=== PATIENT | male | born 1955 | race Caucasian/White ===

== ENCOUNTER 2022-07-06 12:20 | Outpatient (CLI) | payer MEDICARE, BC, SELFPAY | END 2022-07-06 12:21 | disposition home or self-care (01) | PROVIDERS: PCP Family Medicine; Visit Provider Physician Assistant Surgical | DX: M25.422 Effusion, left elbow (principal) | CPT/HCPCS: 87186; 87205; 89060 ==

== ENCOUNTER 2022-08-11 07:14 | Emergency (ER) | payer MEDICARE, BC, SELFPAY ==
[2022-08-11 07:19] VITALS: BP 158/72; PULSE 56; RESP 18; TEMP 36.2; O2SAT 98; BMI 35.3
--- NOTE | 2022-08-11 07:32 | CRLHL7_ITS ---
For Patients: As a result of the Cures Act, medical imaging exams and procedure reports are released immediately into your electronic medical record. You may view this report before your referring provider. If you have questions, please contact your health care provider. INDICATION: Pain. TECHNIQUE: Two views left glenohumeral joint. IMPRESSION: No fracture or malalignment. Maintained acromiohumeral distance. Mild osteoarthritis AC joint. Dictated by Claude Flood MD @ 08/11/2022 8:22:20 AM (Electronically Signed)
--- NOTE | 2022-08-11 08:07 | ED_ITS ---
HPI - General Adult General Time Seen by Provider: 08:07 Date Seen: 08/11/22 Chief complaint: Shoulder Injury/Pain Stated complaint: LT shoulder pain Time Seen by Provider: 08/11/22 08:05 Source: patient and RN notes reviewed Mode of arrival: ambulatory Limitations: no limitations History of Present Illness HPI narrative: Patient is a 67-year-old gentleman coming in with left shoulder pain that has been progressive over the last week. Seems to worsen when he tries to lay down at night. Last night he was up every hours every couple hours, trying Aleve, trying [id number] pain medicines. He is feeling the pain go up into his left neck some. Feels it down into the upper arm. No numbness or tingling. He has had a history of gout in this left elbow but it feels nothing like that. He is not having any pain with mobilizing the joint. No fevers chills, no trauma, no aggravating activity that he is aware of. He has been to the chiropractor in the chiropractors done adjustments and nothing is helping. Symptoms are getting worse. He did have a left shoulder x-ray ordered in triage been okayed by the night time ED doctor. My preliminary review I see no evidence of any definitive pathology, awaiting Radiology over-read on this. Related Data Home Medications Medication Instructions Recorded Confirmed atenolol 25 mg tablet 25 mg PO QDAY 07/06/22 07/31/22 glimepiride 2 mg tablet 2 mg PO QDAY 07/06/22 07/31/22 losartan 25 mg tablet 25 mg PO QDAY 07/06/22 07/31/22 metformin 500 mg tablet 500 mg PO BID 07/06/22 07/31/22 pioglitazone 15 mg tablet (Actos) 15 mg PO QDAY 07/06/22 07/31/22 allopurinol 100 mg tablet 200 mg PO QDAY 07/31/22 07/31/22 allopurinol 300 mg tablet 300 mg PO QDAY 07/31/22 07/31/22 Previous Rx's Medication Instructions Recorded cyclobenzaprine 10 mg tablet 10 mg PO TID PRN muscle spasm #30 08/11/22 tabs gabapentin 300 mg capsule 300 mg PO QHS PRN #14 caps 08/11/22 prednisone 20 mg tablet 20 mg PO BID #10 tabs 08/11/22 Allergies Allergy/AdvReac Type Severity Reaction Status Date / Time No Known Drug Allergies Allergy Verified 07/31/22 09:09 [facility] Medical History (Updated 08/11/22 @ 10:14 by Sharon Crane MD) Hypertension Type 2 diabetes mellitus Surgical History (Updated 07/06/22 @ 11:17 by Eliza Zhang LPN) History of prostate surgery Social History Smoking Status: Former smoker How often do you have a drink containing alcohol: never AUDIT-C Alcohol total score: 0 Non-prescribed substance use: denies use Exam Const: Vital Signs, click to edit/add: Vital Signs - 24 hr 08/11/22 07:19 Temperature 97.2 F L Pulse Rate [Pulse Oximeter] 56 L Respiratory Rate 18 Blood Pressure [Ri ght Upper Arm] 158/72 H Pulse Oximetry 98 Oxygen Delivery Me thod Room Air Documenting provider has reviewed patient's vital signs: yes Common normals: no apparent distress, oriented x3, no limitations, healthy appearing, alert and well nourished General appearance: cooperative and comfortable Other: Patient has no midline tenderness of his neck, there is some left paraspinous tenderness but no palpable abnormality other than his pain. He has full range of motion of his neck without any difficulty. He has full range of motion of his left shoulder, no evidence of any impingement, no pain with supraspinatus testing. He does get a little anterior shoulder pain when you have him reach behind his back. Otherwise the strength throughout his left arm is normal. He has a normal arc of abduction, no pain over 90?. Forward flexion is normal. After I had done some provocative maneuvers of his neck and shoulder, he stated the left neck was hurting a little bit more and was feeling a little dull ache in the left deltoid area. Normal sensation, normal coloration, normal vascularity of this extremity. HENMT: Common normals: normocephalic and head/scalp atraumatic Head and scalp: normocephalic and atraumatic Cardio: Common normals: regular rate, regular rhythm, S1 normal heart sound, S2 normal heart sound, no gallops, no clicks and no murmurs Rate: regular rate Rhythm: regular rhythm Heart sounds: S1 normal and S2 normal Neuro: Common normals: oriented x3 Sensorium/orientation: alert Course Course Hospital Course: Reviewed with patient and his that I suspect a neck issue here, suspect a cervical radiculopathy. We are going to have him go back to x-ray and get cervical spine imaging, plain films. Reviewed with them that this will just give us an idea of the underlying architecture of his spine. Ultimately if he has having ongoing issues, developed motor problems, would need an MRI. He does understand that. Reevaluation(s) Reevaluation #1: Discussed with patient possibly doing IM steroids to initiate management. We are currently waiting for him to get cervical spine imaging. His would like to get the injection. I will order Solu-Medrol 125 mg IM while we await his cervical spine x-rays. He is wondering what he is going to do about sleeping, reviewed with him that the steroids really are the mainstay of treatment in this. We certainly will discussed pain management prior to discharge. I can easily send him with few pain pills that he can use at night to help him and sleep until the steroids are hopefully improving his situation. Time: 08:57 Reevaluation #2: Reviewed cervical spine x-rays with them. He does have some spondylosis, reviewed there were degenerative changes which would support a diagnosis of cervical radiculopathy. Right now he is feeling best sitting up. We did discuss that that is likely giving more space within the spine. In discussion of pain management for sleep, had stated she had gotten gabapentin before. Did discuss narcotics verses gabapentin. Decision was made to initiate gabapentin at bedtime as needed. We did discuss that there sedative properties with this. I will send in a prescription of gabapentin, reviewed with him I can give them more tablets of this than the narcotic. Time: 10:10 Vital Signs Vital signs: Initial Vital Signs Temperature 97.2 F L 08/11/22 07:19 Temperature Source Temporal Artery Scan 08/11/22 07:19 Pulse Rate 56 L 08/11/22 07:19 Respiratory Rate 18 08/11/22 07:19 Blood Pressure 158/72 H 08/11/22 07:19 Blood Pressure Mean 100 08/11/22 07:19 Blood Pressure Position Sitting 08/11/22 07:19 Pulse Oximetry 98 08/11/22 07:19 Oxygen Delivery Method 12/03/22 07:19 Vital Signs Temperature 97.2 F L 08/11/22 07:19 Pulse Rate 56 L 08/11/22 07:19 Respiratory Rate 18 08/11/22 07:19 Blood Pressure 158/72 H 08/11/22 07:19 Pulse Oximetry 98 08/11/22 07:19 Oxygen Delivery Method 08/11/22 07:19 Temperature 97.2 F L 08/11/22 07:19 Pulse Rate 56 L 08/11/22 07:19 Respiratory Rate 18 08/11/22 07:19 Blood Pressure 158/72 H 08/11/22 07:19 Pulse Oximetry 98 08/11/22 07:19 Oxygen Delivery Method 08/11/22 07:19 Medical Decision Making Imaging Data X-ray left shoulder: Attestation: I have reviewed the pertinent imaging results. My impression: I did not appreciate any evidence of any fracture or significant abnormality on my preliminary review of this shoulder, await Radiology over-read. Radiologist's impression: Patient: [facility] Facility:?[facility] Patient ID:?[id number] Site Patient ID:?[id number]. Site :?[id number] Study:?XRay Shoulder Left -08/11/2022 8:05:09 AM Ordering Physician:SHERLY ZAPATA Final Report: INDICATION: Pain. TECHNIQUE: Two views left glenohumeral joint. IMPRESSION: No fracture or malalignment. Maintained acromiohumeral distance. Mild osteoarthritis AC joint. Dictated by Claude Flood MD @ 08/11/2022 8:22:20 AM (Electronic Signature) X-ray cervical spine: Attestation: I have reviewed the pertinent imaging results. My impression: Appreciate some degenerative changes but no acute pathology, await Radiology over-read. Radiologist's impression: Patient: [facility] Facility:?[facility] Patient ID:?[id number] Site Patient ID:?[id number]. Site :?1955 Study:?XRay Spine Cervical 3 VIEWS-08/11/2022 9:50:07 AM Ordering Physician:Armando Herrera Final Report: INDICATION: Pain. TECHNIQUE: Three views of the cervical spine. COMPARISON: None available. FINDINGS: Cervical spinal straightening without static spondylolisthesis. The visualized cervical vertebral body heights are maintained. Moderate multilevel cervical spondylosis predominating at C6-C7. Nonthickened prevertebral soft tissues. IMPRESSION: Multilevel cervical spondylosis. Dictated by Diaz Holder MD @ 08/11/2022 9:54:16 AM Dictated by: Diaz Holder MD @ 08/11/2022 09:54:19 (Electronic Signature) Critical Care Time Critical Care Time Critical Care Time: No Discharge Plan Discharge Clinical Impression: Left cervical radiculopathy Patient Disposition: Home, Self-Care Condition: Stable Instructions: Cervical Radiculopathy (ED) Additional Instructions: Need to start oral prednisone tonight and take as prescribed. Can use Flexeril as needed for muscle relaxer as prescribed. Tylenol/ibuprofen as needed during day, follow bottle directions for dosing. Referral provided for physical therapy, call for appointment. Need to schedule follow up in clinic for primary provider within the next week. Review handout, if concerns or worsening, need to seek re-evaluation. Activity Level: Activity as Tolerated Prescriptions: New prednisone 20 mg tablet 20 mg PO BID Qty: 10 0RF cyclobenzaprine 10 mg tablet 10 mg PO TID PRN (Reason: muscle spasm) Qty: 30 0RF gabapentin 300 mg capsule 300 mg PO QHS PRNQty: 14 0RF No Action metformin 500 mg tablet 500 mg PO BID losartan 25 mg tablet 25 mg PO QDAY glimepiride 2 mg tablet 2 mg PO QDAY atenolol 25 mg tablet 25 mg PO QDAY pioglitazone [Actos] 15 mg tablet 15 mg PO QDAY allopurinol 100 mg tablet 200 mg PO QDAY allopurinol 300 mg tablet 300 mg PO QDAY Follow Up/Referrals: Pedrito Hale MD [Primary Care Provider] - Stand Alone Forms: [employer]th Info Instructions
--- NOTE | 2022-08-11 08:16 | CRLHL7_ITS ---
For Patients: As a result of the Cures Act, medical imaging exams and procedure reports are released immediately into your electronic medical record. You may view this report before your referring provider. If you have questions, please contact your health care provider. INDICATION: Pain. TECHNIQUE: Three views of the cervical spine. COMPARISON: None available. FINDINGS: Cervical spinal straightening without static spondylolisthesis. The visualized cervical vertebral body heights are maintained. Moderate multilevel cervical spondylosis predominating at C6-C7. Nonthickened prevertebral soft tissues. IMPRESSION: Multilevel cervical spondylosis. Dictated by Diaz Holder MD @ 08/11/2022 9:54:16 AM Dictated by: Diaz Holder MD @ 08/11/2022 09:54:19 (Electronically Signed)
[2022-08-11] MEDS: METHYLPREDNISOLONE SOD SUCC 40 MG/ML 125 MG IM (09:22)
== END 2022-08-11 10:32 | disposition home or self-care (01) ==
PROVIDERS: Emergency Provider Family Medicine; PCP Family Medicine
DX: M54.12 Radiculopathy, cervical region (principal)
CPT/HCPCS: 72040; 73030; 96372; 99284; J2920

== ENCOUNTER 2022-08-20 14:06 | Outpatient (CLI) | payer MEDICARE, BC, SELFPAY ==
--- NOTE | 2022-08-20 14:30 | MR_ITS ---
[address] [address] Phone:?[phone] Fax:?[phone] Referring Physician Information: Selma Best [address] [facility] [address] Phone:?[phone] Fax:?[phone] Patient:?Basilio Jimenez D.O.B:?1955 Sex:?Male Phone:?[phone] [facility] MRN:?[id number] Exam Date:?08/20/2022 ? EXAM: MRI of the LEFT SHOULDER, without contrast CLINICAL HISTORY: Left shoulder pain. Evaluate for rotator cuff tear. COMPARISONS: None available. TECHNICAL: MRI sequences of the left shoulder: Axials: PD, T2 Coronals: PD, STIR, T2 Sagittals: PD, T2 SEDATION: None CONTRAST: None FINDINGS: Bones: No fracture or suspicious bone marrow signal abnormality. Coracoacromial arch: Acromion: No os acromiale. Type I-II acromion. Acromiohumeral space: The bony distance is unremarkable. Coracohumeral space: The bony distance measures 6-7 mm. Acromioclavicular joint: Moderate degenerative changes with moderate inferior osteophytosis/hypertrophy. Coracoclavicular ligament: The coracoclavicular ligament is intact. Rotator cuff muscles/tendons: Supraspinatus: There is a 4 x 4 mm slitlike concealed intrasubstance tear within the supraspinatus tendon insertional footprint that contacts the cortical insertional surface and is superimposed upon undersurface fraying and moderate tendinopathy of the supraspinatus tendon. No atrophy of the supraspinatus muscle. Infraspinatus: Interstitial delamination and moderate tendinopathy of the infraspinatus tendon. No atrophy of the infraspinatus muscle. Teres minor: The teres minor tendon and muscle are intact. Subscapularis: 2.2 x 2.2 cm ill-defined high-grade partial-thickness tear of the superior portion of the subscapularis tendon superimposed upon moderate subscapularis tendinopathy. No atrophy of the subscapularis muscle. Labrum: Fraying/ill-defined tearing of the superior and posterior portions of the labrum. Proximal biceps tendon, long head and short heads: Mild tendinopathy within the intra-articular portion of the long head of the biceps tendon. The short head is intact. Glenohumeral joint: Trace glenohumeral joint effusion. No full-thickness chondral defect or subchondral bone marrow edema/cystic change is seen. No convincing evidence of capsular edema or thickening although evaluation is suboptimal because of lack of joint distention. Bursae: Subacromial/subdeltoid: No convincing subacromial bursal thickening/bursitis. Subcoracoid: No convincing subcoracoid bursal thickening/bursitis. IMPRESSION: 1. 2.2 x 2.2 cm ill-defined high-grade partial-thickness tear of the superior portion of the subscapularis tendon superimposed upon moderate subscapularis tendinopathy. Associated narrowing of the coracohumeral bony distance. 2. 4 x 4 mm slitlike concealed intrasubstance tear within the supraspinatus tendon insertional footprint contacts the cortical insertional surface and is superimposed upon undersurface fraying and moderate tendinopathy of the supraspinatus tendon. 3. Interstitial delamination and moderate tendinopathy of the infraspinatus tendon. 4. No atrophy of the rotator cuff musculature. 5. Mild tendinopathy within the intra-articular portion of the long head of the biceps tendon. 6. Moderate acromioclavicular joint osteoarthritis with moderate inferior osteophytosis/hypertrophy. 7. Fraying/ill-defined tearing of the superior and posterior portions of the labrum. 8. Trace glenohumeral joint effusion. RCB Electronically signed on 08/21/2022 6:24:00 AM by Naun Diehl M.D.
== END 2022-08-20 14:07 | disposition home or self-care (01) ==
LOC: MRI 14:07
PROVIDERS: PCP Family Medicine; Visit Provider Physician Assistant Surgical
DX: M25.511 Pain in right shoulder (principal); S46.912A Strain of unspecified muscle, fascia and tendon at shoulder and upper arm level, left arm, initial encounter; M75.102 Unspecified rotator cuff tear or rupture of left shoulder, not specified as traumatic; M19.012 Primary osteoarthritis, left shoulder; S43.432A Superior glenoid labrum lesion of left shoulder, initial encounter; M25.412 Effusion, left shoulder
CPT/HCPCS: 73221

== ENCOUNTER 2022-10-01 07:30 | Outpatient (RCR) | payer MEDICARE, BC, SELFPAY ==
--- NOTE | 2022-08-23 09:40 | PT.OPEX ---
Please review and sign the attached physical therapy evaluation completed on 08/23/22. Thank you. PT [facility] Outpatient Eval PT [facility] Outpatient Eval Start: 08/23/22 07:26 Freq: Status: Active Protocol: Document 08/23/22 07:26 TLQ (Rec: 08/23/22 08:27 TLQ [id number]) E-signed By Chanelle Khanna DPT Physical Therapy Outpatient Evaluation Insurance Information Recert Due Date 11/21/22 Insurance Name Medicare B,[employer] Medical Diagnosis Bursitis of left shoulder Pain in left shoulder Treating Diagnosis Pain in left shoulder Stiffness in left shoulder Muscle weakness Referring MD Morris Subjective Subjective States pain in left shoulder started a few weeks ago when he was pushing something while working on his car. Started Prednisone about a week and half ago, his shoulder has been feeling better since starting it. Prefers to sleep on his left side, able to do so comfortably since starting new medication. Prior to Prednisone prescription pain would wake him up a few nights a week. Able to use his shoulder close to normal now. Used to have difficulty washing his hair but is able to so now. Still has a little trouble lifting heavier objects with his left arm. Is left handed so prefers to use his left arm. Had MRI taken of left shoulder on 08/20/22, reports he has two small rotator cuff tears, recommended physical therapy. PMHx: Diabetes Pain Comments 09/18* *since starting Prednisone Current Work Status Retired Preferred Name [employer] Precautions Therapy Limitations/Systems Review Not Limited Objective Range of Motion L shoulder AROM: flexion - 99 degrees extension - 46 degrees abduction - 56 degrees internal rotation - C7 external rotation - T8 Strength Shoulder: flexion - L 3, R 5 abduction - L 3+, R 5 internal rotation - L 4+, R 5 external rotation - L 4+, R 5 Elbow: flexion - 5 B extension - 5 B Palpation Non tender with palpation of all rotator cuff muscles and points of insertion on L shoulder Joint mobility: hypomobile B glenohumeral posterior glide Posture Forward shoulders Other/Pertinent Objective Shoulder special tests: Empty can test - negative on L Drop arm test - negative on L Lift-off test - positive on L Functional Test Performed & Score SPADI pain: 32% disability: 24% total score: 35/130 Assessment Assessment/Impression Patient presents with pain and limited mobility in his left shoulder, symptoms began while working on his car a few weeks ago. Patient had MRI taken of his shoulder three days ago, indicated small rotator cuff tear. He is currently taking Prednisone which has helped with his pain levels. Rotator cuff of L subscapularis likely due to positive lift off sign, possible involvement of L supraspinatus due to limited abduction AROM. Demonstrates decreased shoulder flexion and abduction AROM upon assessment today, able to achieve functional range supine supine active-assisted exercises. Muscle weakness also present in L shoulder. Based on the above examination findings, he will benefit from skilled physical therapy to increased L shoulder AROM and increase strength to return to PLOF. Primary Functional Limitations L shoulder flexion, L shoulder abduction, lifting with L arm , lying on L shoulder, muscle weakness Plan of Care Rehabilitation Potential Good Physical Therapy Goals In 3-4 visits: - Increase L shoulder flexion AROM by >10 degrees. - Increase L shoulder abduction AROM to >90 degrees. In 6-8 visits: - Patient will demonstrate L shoulder flexion WFL for improved overhead lifting. - Patient will demonstrate L shoulder abduction WFL for improved shoulder mobility. - L shoulder gross strength will increase to 5/5 to allow patient to work on his car pain-free. - Patient will adhere to HEP to maintain strength and mobility outside of physical therapy. Treatment Plan/Direct Interventions Ice/Cold/Vasopneumatic,Joint Mobilization,Manual Therapy, Neuromuscular Re-ed,Self-Care/ Home Management,Therapeutic Activities,Therapeutic Exercises Frequency/Duration 1x/week for 6-8 visits Patient Will Be Discharged From Therapy Completion of LTG(s),Skills Plateau,Independent w/HEP, Independently Progressing Evaluation Billing Untimed Code Treatment Minutes 25 Complexity Low Certification Information Initial Certification Date 08/23/22 Ending Certification Date 11/21/22 Provider Signature Shows Agreement With POC & Medical Necessity Physician Signature & Date Requested Please Sign/Date Here Physician Comment/Change : Physician NPI Number #
== END 2023-01-02 14:40 | disposition home or self-care (01) ==
PROVIDERS: PCP Family Medicine; Visit Provider Physician Assistant Surgical
DX: M75.52 Bursitis of left shoulder (principal); Z51.89 Encounter for other specified aftercare
CPT/HCPCS: 97110; 97140; 97161

== ENCOUNTER 2023-11-19 10:08 | Outpatient (CLI) | payer MEDICARE, BC, SELFPAY | END 2023-11-19 10:09 | disposition home or self-care (01) | PROVIDERS: PCP Family Medicine; Visit Provider Family Medicine | DX: M54.16 Radiculopathy, lumbar region (principal); M51.36 Other intervertebral disc degeneration, lumbar region | CPT/HCPCS: 62323; J0702; Q9966 ==

== ENCOUNTER 2024-01-30 09:52 | Outpatient (CLI) | payer MEDICARE, BC, SELFPAY ==
--- OUTSIDE RECORDS SUMMARY | 2024-01-30 09:53 | XMS_ITS | Continuity of Care Document ---
Author Organization [facility], [facility] Address [address] [place] [address] Assessment Encounter Date Assessment Date Assessment LastModified by Organization Details LastModified Time 01/29/2024 01/29/2024 68-year-old male with history of nephrolithias is, elevated PSA, and BPH with lower urinary tract symptoms status post TURP [email or web address] Not available 01/27/2024 16:20:13 Plan of Treatment Reminders Order Date Submit Date Provider Last Modified By Organization Details Last Modified Time Details Appointments None record ed. Lab None record ed. Referral None record ed. Procedures None record ed. Surgeries None record ed. Imaging None record ed. Medication Orders None record ed. Patient TargetsNo targets recorded. Patient InstructionsNo instructions recorded. Reason for Referral None Reported. Problems Name Status Onset Date Resolution Date Notes Provider Name and Address Organization Details Recorded Time Prostate specific antigen above reference range Active 11/20/19 13 790.93 : ELEVATED PSA Not Available [facility] 02/25/2020 02:07:20 Problem Notes None recorded. Procedures Surgical History Date Name Laterality Status Provider Name and Address Organization Details Recorded Time 4 COMPLEX VISIT completed Stanley Hernandez MD [address] [place] [address],[address], [phone], [facility] 01/29/2024 09:13:49 4 Bladder Scan completed Michelle hunter, [facility] 01/29/2024 11:53:43 3 Bladder Scan completed Michelle hunter, [facility] 08/28/2023 10:43:52 3 colonoscopy completed Stanley Hernandez MD [address] [place] [address],[address], [address], [facility] 08/28/2023 10:33:21 3 Bladder Scan completed Stanley Hernandez MD [address] [place] [address], [phone], [facility] 01/28/2023 12:37:23 2 Flow Rate / Uroflow completed Pa hunter [facility] 07/16/2022 15:49:34 2 Bladder Scan completed Pa hunter [facility] 07/16/2022 15:48:19 2 CYSTOURETHROSCO PY, WITH IRRIGATION AND EVACUATION OF CLOTS (SURG) completed Stanley Hernandez MD [address] [place] [address],[address], [phone], [facility] 07/16/2022 16:19:28 Imaging Results None recorded. Procedure Notes None recorded. Medical Equipment None Reported. Allergies No known drug allergies Medications Name Sig Start Date Stop Date Status Note LastModified by Organization Details LastModified Time cyclobenzap rine 10 mg tablet TAKE 1 TABLET BY MOUTH THREE TIMES DAILY NEEDED FOR MUSCLE SPASM 01/28 completed Not Available Not Available Not Available pioglitazon e 15 mg tablet TAKE 1 TABLET BY MOUTH ONCE DAILY. active Not Available Not Available No t Available prednisone 10 mg tablet 01/28 completed Not Available Not Available Not Available doxycycline hyclate 100 mg capsule 01/28 completed Not Available Not Available Not Available prednisone 20 mg tablet TAKE 1 TABLET BY MOUTH TWICE DAILY 01/28 completed Not Available Not Available Not Available atenolol 25 mg tablet active Not Available Not Available No t Available chlorthalid one 50 mg tablet TAKE ONE TABLET DAILY active Not Available Not Available No t Available allopurinol 100 mg tablet 08/28 completed Not Available Not Available Not Available ciprofloxac in 500 mg tablet 07/16 completed Not Available Not Available Not Available tramadol 50 mg tablet active Not Available Not Available No t Available potassium citrate ER 10 mEq (1,080 mg) tablet,exte nded release TAKE 1 TABLET BY MOUTH TWICE DAILY WITH FOOD 08/28 completed Not Available Not Available Not Available cephalexin 500 mg capsule TAKE 1 CAPSULE BY MOUTH THREE TIMES DAILY FOR 7 DAYS 02/13 completed Not Available Not Available Not Available metformin 1,000 mg tablet twice daily active Not Available Not Available No t Available glimepiride 4 mg tablet TAKE 2 TABLETS BY MOUTH ONCE DAILY WITH A MEAL. active Not Available Not Available No t Available gabapentin 300 mg capsule TAKE 1 CAPSULE BY MOUTH EVERY DAY AT BEDTIME NEEDED 08/28 completed Not Available Not Available Not Available omeprazole 20 mg capsule,del ayed release 01/28 completed Not Available Not Available Not Available allopurinol 300 mg tablet active Not Available Not Available Not Available losartan 100 mg tablet TAKE ONE TABLET BY MOUTH DAILY. active Not Available Not Available No t Available finasteride 5 mg tablet TAKE 1 TABLET BY MOUTH EVERY DAY 01/28 completed Not Available Not Available Not Available Microlet Lancet USE TO TEST ONCE DAILY active Not Available Not Available No t Available calcium citrate 250 mg tablet TAKE ONE TABLET TWICE DAILY 02/13 completed Not Available Not Available Not Available Gavilyte-C 240 gram-22.72 gram-6.72 gram-5.84 gram oral solution DRINK 2 LITERS THE DAY BEFORE COLONOSCO PY AND 2 LITERS 6 HOURS BEFORE APPOINTME NT 08/28 completed Not Available Not Available Not Available Contour Next Test Strips TEST 2 TIMES DAILY active Not Available Not Available No t Available FreeStyle Nicholas 14 Day Sensor kit CHANGE SENSOR EVERY 14 DAYS active Not Available Not Available No t Available Vitals Date Recorded Body height Body mass index (BMI) Body weight Provider Name and Address Organization Details Last Updated DateTime 01/29/2024 182.88 cm 39.3 kg/m2 738836.79 g Michelle Tierney [facility] 01/29/2024 11:49:16 Social History Question Answer Notes LastModified by Organizat ion Details LastModified Time Tobacco Smoking Status Former Smoker Pa hunter [facility] 07/16/2022 15:40:06 What Is Your Level Of Alcohol Consumption? Occasional Information not available 07/16/2022 How Many Times Per Week Do You Consume Alcohol? Less Than 1 Time Per Week Information not available 02/13/2023 What Is Your Level Of Caffeine Consumption? Occasional Information not available 07/16/2022 Are You Currently Employed? No Information not available 07/16/2022 When Did You Quit Smoking? 16+yearssincel astcigarette Information not available 07/16/2022 Recreational Drug Use No Information not available 07/16/2022 What Was The Date Of Your Most Recent Tobacco Screening? 01/29/2024 [email or web address] Information not available 01/29/2024 What Is Your Relationship Status? Information not available 07/16/2022 Do You Use Any Illicit Or Recreational Drugs? No Information not available 02/13/2023 Has Tobacco Cessation Counseling Been Provided? No Information not available 07/16/2022 How Many Years Have You Smoked Tobacco? 20 Information not available 07/16/2022 Do You Or Have You Ever Used Any Other Forms Of Tobacco Or Nicotine? No Information not available 07/16/2022 Sex: Male Functional Status None recorded. Mental Status None recorded. Family History Nothing Reported. Medical History No medical history recorded. Immunizations Vaccine Type Date Status Provider Name and Address Organization Details Recorded Time Influenza vaccine, quadrivalent, adjuvanted 07/26/2023 completed Stanley Hernandez MD [address] [place] [address],[address], [phone], [facility] 08/28/2023 10:29:24 Pneumococcal conjugate PCV20, polysaccharide [id number] conjugate, adjuvant, PF 07/26/2023 completed Stanley Hernandez MD [address] [place] [address],[address], [phone], [facility] 08/28/2023 10:29:24 COVID-19, mRNA, LNP-S, PF, 50 mcg/0.5 mL 07/26/2023 completed Stanley Hernandez MD [address] [place] [address],[address] [place] [address], [phone], [facility] 08/28/2023 10:29:24 RSV, bivalent, protein subunit RSVpreF, diluent reconstituted, 0.5 mL, PF 08/27/2023 completed Michelle hunter [facility] 01/29/2024 11:49:27 zoster recombinant 03/05/2019 completed Romina hunter [facility] 07/03/2023 12:36:03 zoster recombinant 06/12/2019 completed Romina Sinha null, [facility] 07/03/2023 12:36:03 Influenza vaccine, quadrivalent, adjuvanted 05/10/2022 completed Romina Sinha null, [facility] 07/03/2023 12:36:03 Influenza vaccine, quadrivalent, adjuvanted 07/07/2020 completed Romina Sinha null, [facility] 07/03/2023 12:36:03 Influenza vaccine, quadrivalent, adjuvanted 07/13/2021 completed Romina Sinha null, [facility] 07/03/2023 12:36:03 COVID-19, mRNA, LNP-S, PF, 30 mcg/0.3 mL dose 11/13/2020 [facility] 12:36:03 COVID-19, mRNA, LNP-S, PF, 30 mcg/0.3 mL dose 12/15/2020 [facility] 12:36:04 COVID-19, mRNA, LNP-S, PF, 30 mcg/0.3 mL dose 07/13/2021 [facility] 12:36:04 pneumococcal polysaccharide PPV23 08/31/2021 [facility] 12:36:04 Tdap 05/10/2022 completed Romina Sinha null, [facility] 07/03/2023 12:36:04 Tdap 08/18/2012 completed Romina Sinha null, [facility] 07/03/2023 12:36:04 Novel [id number], all formulations 09/07/2009 completed Romina Sinha null, [facility] 07/03/2023 12:36:04 zoster live 08/27/2014 [facility] 12:36:04 Influenza, seasonal, injectable 05/28/2011 completed Romina Sinha null, [facility] 07/03/2023 12:36:04 Influenza, seasonal, injectable 06/04/2013 completed Romina hunter [facility] 07/03/2023 12:36:04 Influenza, seasonal, injectable 07/22/2003 [facility] 12:36:04 Influenza, seasonal, injectable 08/18/2012 completed Romina hunter [facility] 07/03/2023 12:36:04 Influenza, seasonal, injectable 08/20/2005 [facility] 12:36:04 Influenza, seasonal, injectable, preservative free 09/07/2009 completed Romina hunter [facility] 07/03/2023 12:36:04 Td (adult), 2 Lf tetanus toxoid, preservative free, adsorbed 04/15/2003 completed Romina hunter [facility] 07/03/2023 12:36:04 influenza, injectable, quadrivalent, preservative free 06/12/2019 completed Romina hunter [facility] 07/03/2023 12:36:04 influenza, injectable, quadrivalent, preservative free 08/27/2014 [facility] 12:36:04 COVID-19, mRNA, LNP-S, bivalent, PF, 30 mcg/0.3 mL dose 07/17/2022 [facility] 12:36:12 Past Encounters Encounter ID Performer Location Encounter Start Date Encounter Closed Date Diagnosis/Indication Diagnosis SNOMED-CT Code [id number] Stanley Hernandez MD [facility] [address] [place] [id number] 01/29/2024 11:33:42 01/29/2024 13:33:04 Lower urinary tract symptoms due to benign prostatic hypertrophy 47311821295621 Prostate s pecific antigen above reference range 362508621 Uric acid renal calculus 175654743 Blood in urine 08058040 Health Concerns Section Related Observation LastModified by Organization Detai ls LastModified Time None Recorded Concern Status LastModified by Organization Details LastModified Time None Recorded Payers Encounter Date Sequence Insurance Name Policy Number Policy Barr Covered Member ID Barr Member ID Guarantor Name 01/29/2024 1 [facility] [employer] - MEDICARE COST [id number] Basilio Jimenez [id number] Basilio Jimenez Notes Date Note Type Note Provider Name and Address Organization Details Recorded Time 01/29/2024 text/html HPI Notes: Mr. Milli calzada is a 68-year-old male who is long followed with me at our [place] office for history of urolithiasis, BPH with lower urinary tract symptoms, and elevated PSA. He is now status post transurethral resection of the prostate and overall doing very well. Reports significantly improved flow and feels as though he is emptying his bladder completely. He did see a slight recurrence in his hematuria but it is since resolved. 01/28/2023: Here for follow-up urolithiasis s/p URS with LL, BPH with lower urinary tract symptoms s/p TURP, and elevated PSA. Today he reports he has been urinating really well but did recently note some return of blood in his urine. He passed some clots which did require a little bit of force to clear but then has seen clear urine ever since. 02/13/2023: Here for follow-up urolithiasis s/p URS with LL, BPH with lower urinary tract symptoms s/p TURP, and elevated PSA. Was admitted to the [facility] after presenting multiple times with hematuria and clot retention. Urine now clear Seen today with his who provides some of the history. 08/28/2023: Here for follow-up urolithiasis s/p URS with LL, BPH with lower urinary tract symptoms s/p TURP, and elevated PSA. Today reports he is doing very well. 01/29/2024: Here for follow-up urolithiasis s/p URS with LL, BPH with lower urinary tract symptoms s/p TURP, and elevated PSA. Continues to do great. Stanley Hernandez MD [address] [facility],[address], [place], [address], [facility] 01/29/2024 13:33:01
--- OUTSIDE RECORDS SUMMARY | 2024-01-30 09:53 | XMS_ITS | Clinical Summary ---
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 0 07/17/2022 Active fluticasone (50 mcg per actuation) nasal solution (FLONASE)Indicati ons:AYSE (obstructive sleep apnea) Inhale 1 [place] to both nostrils once daily. 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 E11.9 NIDDM type II - Test 1 time/day 6 Each 3 07/22/2022 Active FINASTERIDE ORAL Take by mouth. Acti ve allopurinoL (ZYLOPRIM) 300 mg tabletIndications :Acute idiopathic gout of left elbow Take 1 Tablet (300 mg) by mouth once daily. 90 Tablet 3 07/26/2023 Active atenoloL (TENORMIN) 25 mg tabletIndications :Essential hypertension Take 1 Tablet (25 mg) by mouth once daily. 90 Tablet 3 07/26/2023 Active chlorthalidone (HYGROTON) 50 mg tabletIndications :Essential hypertension Take 1 Tablet (50 mg) by mouth once daily. 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 180 Tablet 3 07/26/2023 Active losartan (Cozaar) 100 mg tabletIndications :Essential hypertension Take 1 Tablet (100 mg) by mouth once daily. 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 90 Tablet 3 07/26/2023 Active traMADoL (ULTRAM) 50 mg tabletIndications :Lumbar radiculopathy,DDD (degenerative disc disease), lumbar Take 1 Tablet (50 mg) by mouth 3 times daily if needed for Pain. 24 Tablet 1 11/18/2023 Active CPAPIndications:O SA (obstructive sleep apnea),Obesity, unspecified classification, unspecified obesity type, unspecified whether serious comorbidity present CPAP machine for home use at pressure: 5-16 cmw , Heated humidifier x 1 q 5 yr, Humidifier chamber x 1 q 6 mo, nasal mask x1 q 3mos, with cushion x 2 q mo, Heated tubing x 1 q 3 mo, Headgear x 1 q 6 mo, Filters: Disposable x 2 q mo non-disposable filters x1 q 6mo, Length of Need: 99 months, Frequency of use: Daily 1 Each 12/19/2023 Active omeprazole 20 mg tabletIndications :Dysphagia, unspecified type,Gastroesopha geal reflux disease, unspecified whether esophagitis present Take 1 Tablet (20 mg) by mouth once daily before a meal. 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, without long-term current use of insulin, unspecified retinopathy severity (HC) Change sensor every 14 days 6 Each 3 07/26/2023 4 Discontinue d(*Medicati on adjustment) Hospital, Clinic, or Other Facility Administered Medication Ordered Dose Route Frequency Start Date End Date Status fentaNYL (PF) (SUBLIMAZE) 50 mcg/mL injection 100 mcgIndications:Dysphagia, unspecified type 100 mcg IV ONE TIME 01/21/2024 01/21/2024 Ended midazolam (VERSED) injection 4 mgIndications:Dysphagia, unspecified type 4 mg IV ONE TIME 01/21/2024 01/21/2024 Ended Active Problems Problem Noted Date Diagnosed Date Status post cystoscopy 05/29/2022 S/P TURP (status post transurethral resection of prostate) 05/29/2022 Anemia 05/29/2022 Stage 3a chronic kidney disease 05/29/2022 Adenomatous colon polyp 08/26/2019 Overview: Colonoscopy 08/2019 multiple polyps, repeat in 3 years Colonoscopy 08/2023 TA, SSA, repeat in 5 years Elevated PSA 03/27/2017 Benign prostatic hyperplasia with lower urinary tract symptoms 03/08/2016 AYSE 05/18/2013 AHI-18 06/04/2013 Essential hypertension 10/25/2009 Type 2 diabetes mellitus wit h both eyes affected by retinopathy without macular edema, without long-term current use of insulin 06/21/2004 Overview: Dx at 36 yo Retinopathy noted at 08/11/13 eye exam Pure hypercholesterolemia Obesity, unspecified Kidney stone Bladder stone Resolved Problems Problem Noted Date Diagnosed Date Resolved Date Benign prostatic hyperplasia with lower urinary tract symptoms 03/08/2016 03/08/2016 Benign prostatic hyperplasia with lower urinary tract symptoms 03/07/2016 03/08/2016 Hypertrophy of prostate with out urinary obstruction and other lower urinary tract symptoms (LUTS) 08/22/2007 03/07/2016 Controlled type 2 diabetes m ellitus without complication, without long-term current use of insulin 06/21/2004 03/05/2019 Overview: Diagnosed at 36 yo Retinopathy noted on 08/12/13 eye exam Encounters Date Type Department Care Team Description 01/21/2024 3:00 PM CDT Office Visit [facility] [place] [address] [place] [address] Axel Tipton MD Procedure (endoscopy) 01/21/2024 Telephone [facility] [place] [address] [place] [address] Axel Tipton MD VERIFY ORDER 01/21/2024 Travel 01/15/2024 Telephone [facility] [place] [address] [place] [address] Axel Tipton MD Appointment Reminder (EGD 01/21/2024) 01/10/2024 11:25 AM CDT Office Visit [facility] [place] [address] [place] [address] Yamila Nixon, Throat Problem (Pt reports having 2 episodes where he was unable/had difficulty swallowing/unable to swallow own spit, x1 month) 01/10/2024 Refill [facility] [address] [place] [address] Santos Rowe MD Refill Request (continuous glucose monitor SENSOR KIT (FREESYLE NICHOLAS) - asking for upgraded nicholas 3 sensors) 01/10/2024 Telephone [facility] [place] [address] [place] [address] Axel Tipton MD Appointment 01/10/2024 Travel 01/10/2024 Nurse Triage [facility] [address] [place] [address] Santos Rowe MD Difficulty Swallowing 12/19/2023 11:00 AM CDT Office Visit [facility] [place] [address] [place] [address] Artemio Vivas MD Sleep Follow-up (cpap) 12/19/2023 Travel 12/15/2023 Travel 11/19/2023 10:40 AM CDT Office Visit [facility] [place] at [facility] [address] [place] [address] Claude Beckwith MD Procedure (L4-5 ILESI) 11/18/2023 10:40 AM CDT Office Visit [facility] [place] [address] [place] [address] Claude Beckwith MD Musculoskeletal Problem (Follow up back pain review MRI) 11/17/2023 Travel from Last 3 Months Immunizations Name Administration Dates Next Due COVID-19 Vaccine Spikevax (M oderna 50mcg/0.5mL) 12YO+ [id number] Formula PF 07/26/2023 COVID-19 vaccine (Pfizer-Bio NTech 30mcg/0.3mL) 12YO+ BIVALENT PF, MDV 07/17/2022 COVID-19 vaccine (Pfizer-Bio NTech 30mcg/0.3mL) PF, MDV 07/13/2021,12/15/2020,11/13/2020 Influenza A (H1N1), Inactiva raz (Age >=3 Years) 09/07/2009 Influenza, IIV3 (Age >=3 years) 06/04/20 13,08/18/2012,05/28/2011,2008,08/20/2005,07/22/2003 Influenza, IIV4 06/12/2019,08/27/2014 Influenza, Inactivated AIIV4 (Age 65+ Years) Preserv Free 07/26/2023,05/10/2022,07/13/2021,2019 Pneumococcal Conj 20-valent (Prevnar 20) 07/26/2023 Pneumococcal Poly,23-Valent (Pneumovax) 08/31/2021 Td (Age >=7 Years) 04/15/2003 Tdap 05/10/2022,08/18/2012 Zoster (Shingrix-RZV, recombinant) 06/12/2019, Zoster (Zostavax-ZVL, live) 08/27/2014 Family History Medical History Relation Name Comments Cancer Brother 1 Ammon mulltiple myelo ma Heart failure Brother 1 Ammon of chf mu ltiple myeloma etc Cancer Brother 2 Roscoe of Sarcoma of the lungs at 50 Cancer Father d 75 yo unknown Diabetes type II Mother b 1936 Good Health Sister Lisa Relation Name Status Comments Brother 1 Ammon Brother 2 Roscoe Father Mother Alive Sister Lisa Social History Tobacco Use Types Packs/Day Years Used Date Smoking Tobacco: Former Cigarettes 2 20 0 09/09/1966 - 09/09/1986 Smokeless Tobacco: Never Tobacco Cessation:Counseling Given: Not Answered Alcohol Use Standard Drinks/Week Comments Not Currently 0 (1 standard drink = 0.6 oz pur e alcohol) rarely PHQ-2 Answer Date Recorded PHQ-2 TOTAL SCORE 0 07/26/2023 Social Connections Answer Date Recorded Frequency of Communication with Friends and Fami ly 0 01/10/2024 Financial Resource Strain Answer Date R ecorded Difficulty of Paying Living Expenses 3 01/10/2024 Difficulty of Paying Living Expenses Not on file 01/10/2024 Food Insecurity Answer Date Recorded Worried About Running Out of Food in the Last Ye ar 1 01/10/2024 Transportation Needs Answer Date Record ed Lack of Transportation (Medical) 1 01/10/2024 Housing Stability Answer Date Recorded Unable to Pay for Housing in the Last Year 1 01/10/2024 Sex and Gender Information Value Date Recorded Sex Assigned at Not on file Gender Identity Not on file Sexual Orientation Not on file Obstetrics History Last Filed Vital Signs Vital Sign Reading Time Taken Comments Blood Pressure 135/62 01/21/2024 1:55 PM CDT Pulse 63 01/21/2024 1:55 PM CDT Temperature 36.8 ??C (98.2 ??F) 01/21/2024 12:40 PM C DT Respiratory Rate 14 01/21/2024 1:55 PM CDT Oxygen Saturation 95% 01/21/2024 1:55 PM CDT Inhaled Oxygen Concentration - - Weight 139.7 kg (308 lb) 01/10/2024 11:41 AM CDT Height 183.5 cm (6' 0.25) 10/08/2023 10:[address] Body Mass Index 41.48 10/08/2023 10:37 AM AQUARIUM SPECIALIST Plan of Treatment Upcoming Encounters Date Type Department Care Team (Late st Contact Info) Description 02/12/2024 9:40 AM CDT Office Visit [facility] [place] [address] [place] [address] Claude Beckwith MD [address] [place] [address] Health Maintenance Due Date Last Done Comments AAA screening age 65-74 2020 Influenza for age 65+ 05/10/2024 07/26/2023 , 05/10/2022, 07/13/2021, Additional history exists Depression screening for age 12+ 07/26/2024 07/26/2023, 07/26/2023, 07/20/2022, Additional history exists Medicare Wellness for age 65+ 07/26/2024 07/26/2023 BMI (ht and wt on same day) for age 18+ 10/08/2024 10/08/2023, 07/26/2023, 08/20/2022, Additional history exists Lipids for age 45-75 07/26/2028 07/26/2023, 07/17/2022, 07/13/2021, Additional history exists Colonoscopy through age 75 08/13/202808/13, 08/13/2023, 08/13/2023, Additional history exists Tetanus booster 05/10/2032 05/10/2022, 08/09, 08/18/2012, Additional history exists Zoster (shingles) series for age 50+ Completed 06/12/2019, 03/05/2019, 08/27/2014 Hepatitis C screening for ag e 18-79 Completed 09/14/2020 Tdap Completed 05/10/2022, 08/18/2012 COVID-19 vaccine series Completed 07/26/20, 07/17/2022, 07/13/2021, Additional history exists Pneumococcal series for age 65+ Completed 3, 08/31/2021 Medical Devices Implanted Type Area Dowel Inserting Machine Operator Device Identifier Shelf Expiration Date Model / Serial / Lot Stent Uret [id number] Contour - [id number] Implanted:Qty: 1 on 10/11/2020 by Stanley Hernandez MD at [facility] Left: Ureter [facility] 06/10/2023 [id number] / / [id number] Stent Uret [id number] Percuflex Hydroplus - [id number] Implanted:Qty: 1 on 10/28/2020 by Stanley Hernandez MD at [facility] Left: Ureter [facility] 05/03/2023 [id number] / / [id number] Description:6Fx 26cm [place] scientific Percuflex Plus Dr Hernandez 10/28/20. Procedures Procedure Name Priority Date/Time Associated Diagnosis Comments PATH TISSUE EXAM Routine 01/21/2024 1:18 PM CDT Dysphagia, unspecified type Gastroesophageal reflux disease, unspecified whether esophagitis present Heartburn ENDOSCOPY 01/21/2024 12:49 PM CDT ESOPHAGOGASTRODUODENOSCOPY DREA 01/20 12:08 PM CDT Dysphagia, unspecified type AMB EPIDURAL STEROID INJECTION Routine 0 11/19/2023 12:00 AM CDT Lumbar radiculopathy DDD (degenerative disc disease), lumbar COLONOSCOPY SCREENING Routine 08/13/2023 12:34 PM AQUARIUM SPECIALIST History of colon polyps LIPID PANEL W REFLEX MEASURE D LDL Routine 07/26/2023 4:00 PM AQUARIUM SPECIALIST 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 Authorizing Provider: ??Axel Tipton MD ?? Collected: ? 01/21/2024 1318 ? Ordering Location: ? [facility] ?? Received: ?01/21/2024 1508 ? Clinic ? Pathologist: ? Elodia Hagen, DO ? Specimens: ?? A) - Distal Esophagus Biopsy ? B) - Mid Esophagus Biopsy ? 01/23/2024 5:17 PM CDT [facility] Final Diagnosis A) ESOPHAGUS, DISTAL, BIOPSY: 1. Normal esophageal squamous mucosa 2. Negative for reflux changes and eosinophilic esophagitis 3. Negative for columnar mucosa B) ESOPHAGUS, MID, BIOPSY: 1. Normal esophageal squamous mucosa 2. Negative for reflux changes and eosinophilic esophagitis 3. Negative for columnar mucosa 01/23/2024 5:17 PM CDT [facility] Clinical Information Mr. Jimenez is a 68 y.o. with symptoms of dysphagia and esophageal reflux. Upper endoscopy examination revealed no endoscopic abnormalities within the esophagus. 01/23/2024 5:17 PM CDT [facility] Gross Description A) Received in formalin are 3 cooper mucosal fragments ranging from 2 mm to 8 mm in greatest dimension, which are entirely submitted in one cassette. It is labeled with the patient's name and designated A. B) Received in formalin are 5 cooper mucosal fragments ranging from 1 mm to 5 mm in greatest dimension, which are entirely submitted in one cassette. It is labeled with the patient's name and designated B. Jaleesa Jimenez 01/22/2024 10:12 AM 01/23/2024 5:17 PM CDT [facility] Microscopic Description The final diagnosis is based on microscopic examination of appropriate sections of all specimens. 01/23/2024 5:17 PM CDT [facility] Additional Information Interpreted at [facility], Central Laboratory - [address], [place] [address] 01/23/2024 5:17 PM CDT [facility] Other (Distal Esophagus Biopsy) Non-Blood / Unknown 01/21/2024 1:18 PM CDT 01/21/2024 3:08 PM CDT Specimen (specimen) (Mid Esophagus Biopsy) Non-Blood / Unknown 01/21/2024 1:19 PM CDT 01/21/2024 3:08 PM CDT Axel Tipton MD PATHOLOGY/CYTOLOG Y [facility] [address] [place] [address], * ENDOSCOPY (01/21/2024 12:49 PM CDT) 01/21/2024 12:4 9 PM CDT Narrative Transcriptions Axel Tipton MD - 01/21/2024 1:31 PM CDT Patient Name: Basilio Jimenez Procedure Date: 01/21/2024 Gender: Male Date of : 1955 Admit Type: Outpatient Procedure: Upper GI endoscopy Proceduralist: Axel Tipton MD , Sabine Omer (Nurse), Jennifer Jeffery (Nurse) Referring MD: Yamila Nixon Indications/Pre-Op Diagnosis: Dysphagia, Esophageal reflux symptoms that persist despite appropriate therapy,Heartburn Medications: Fentanyl 100 micrograms IV, Midazolam 4 mgIV, The level of sedation administered wasmoderate Procedure Description: Risk of bleeding, infection, perforation, need for surgery and alternatives discussed. The endoscope [id number] was introduced through the mouth, and advanced to the third part of duodenum. The upper GI endoscopy was accomplished without difficulty. The patient tolerated the procedure well. Complications: No immediate complications. Estimated Blood Loss & Specimen: Estimated blood loss: none. Specimen collected - Yes and sent to Laboratory Findings: No endoscopic abnormality was evident in the esophagus to explain the patient's complaint of dysphagia. Biopsies were taken with a cold forceps for histology. The Z-line was regular and was found 44 cm from the incisors. The entire examined stomach was normal. The examined duodenum was normal. Impressions/Post-Op Diagnosis: - No endoscopic esophageal abnormality to explain patient'sdysphagia. Biopsied. - Z-line regular, 44 cm from the incisors. - Normal stomach. - Normal examined duodenum. Recommendation: - Patient has a contact number available for emergencies. The signsand symptoms of potential delayed complications were discussed with the patient. Return to normal activities tomorrow. Written discharge instructions were provided to the patient. - Resume previous diet. - Continue present medications. - Await pathology results. Moderate Sedation: A time out was performed before the procedure. Moderate (conscious) sedation was administered by the endoscopy nurse and supervised bythe endoscopist. The following parameters were monitored: oxygensaturation, heart rate, blood pressure, EKG, CO2, respiratory rate, adequacy of pulmonary ventilation and reponse to care. Please refer to the patient's medical record flowsheets and nursing notes for moderate sedation details. Total physician intraservice time was * minutes. Axel Tipton MD 01/21/2024 1:31:35 PM This report has been signed electronically. Note Initiated On: 01/21/2024 12:49 PM Procedure Code(s): --- Professional --- 68679, Esophagogastroduodenoscopy, flexible, transoral; with biopsy, single or multiple Diagnosis Code(s): --- Professional --- R13.10, Dysphagia, unspecified K21.9, Gastro-esophageal reflux diseasewithout esophagitis R12, Heartburn CPT copyright 2022 [employer]. All rights reserved. The codes documented in this report are preliminary and upon law examiner reviewmay be revised to meet current compliance requirements. Scope In: 1:15:47 PM Scope Out: 1:20:55 PM Axel Tipton MD PROCEDURE ORD * AMB EPIDURAL STEROID INJECTION (11/19/2023 12:00 AM CDT) Claude Beckwith MD NEUROLOGY ORD * COLONOSCOPY (08/13/2023 11:42 AM AQUARIUM SPECIALIST) 08/13/2023 11:4 2 AM AQUARIUM SPECIALIST Narrative Transcriptions Axel Tipton MD - 08/13/2023 2:29 PM CST Patient Name: Basilio Jimenez Procedure Date: 08/13/2023 Gender: Male Date of : 1955 Admit Type: Outpatient Procedure: Colonoscopy Proceduralist: Axel Tipton MD , Sabine Omer (Nurse), Jennifer Jeffery (Nurse) Referring MD: Jose Latham Indications/Pre-Op Diagnosis: High risk colon cancer surveillance:Personal history of multiple (3 or more) adenomas,High risk colon cancer surveillance: Personal history of sessile serrated colon polyp (10mm or greater in size), Last colonoscopy:August 2019 Medications: Fentanyl 100 micrograms IV, Midazolam 4 mgIV, The level of sedation administered wasmoderate Procedure Description: The patient had risks, benefits and alternatives explained to andgave informed consent. The patient had a stable cardiopulmonary status and judged an adequate candidate for conscious sedation. The endoscope -[id number] was passed through the anus andadvanced to the cecum, identified by appendiceal orifice and ileocecal valve.The colonoscopy was performed without difficulty. The patient toleratedthe procedure well. The quality of the bowel preparation was good. The ileocecal valve, appendiceal orifice, and rectum were photographed. Complications: No immediate complications. Estimated Blood Loss & Specimen: Estimated blood loss: none. Specimen collected - Yes and sent to Laboratory Findings: The perianal and digital rectal examinations were normal. Two sessile polyps were found in the ascending colon. The polyps were4 mm in size. These polyps were removed with a cold snare. Resectionand retrieval were complete. A 4 mm polyp was found in the rectum. The polyp was sessile. Thepolyp was removed with a cold snare. Resection and retrieval werecomplete. The exam was otherwise without abnormality. Impressions/Post-Op Diagnosis: - Two 4 mm polyps in the ascending colon, removed with a cold snare. Resected and retrieved. - One 4 mm polyp in the rectum, removed with a cold snare. Resectedand retrieved. - The examination was otherwise normal. Recommendation: - Patient has a contact number available for emergencies. The signsand symptoms of potential delayed complications were discussed with the patient. Return to normal activities tomorrow. Written discharge instructions were provided to the patient. - Resume previous diet. - Continue present medications. - Await pathology results. - Repeat colonoscopy is recommended. The colonoscopy date will be determined after pathology results from today's exam become available for review. Moderate Sedation: A time out was performed before the procedure. Moderate (conscious) sedation was administered by the endoscopy nurse and supervised bythe endoscopist. The following parameters were monitored: oxygensaturation, heart rate, blood pressure, EKG, CO2, respiratory rate, adequacy of pulmonary ventilation and reponse to care. Please refer to the patient's medical record flowsheets and nursing notes for moderate sedation details. Total physician intraservice time was 27 minutes. Axel Tipton MD 08/13/2023 2:29:01 PM This report has been signed electronically. Note Initiated On: 08/13/2023 11:42 AM Procedure Code(s): --- Professional --- 18487, Colonoscopy, flexible; with removalof tumor(s), polyp(s), or other lesion(s) bysnare technique Diagnosis Code(s): --- Professional --- D12.2, Benign neoplasm of ascending colon D12.8, Benign neoplasm of rectum Z86.010, Personal history of colonicpolyps CPT copyright 2021 [employer]. All rights reserved. The codes documented in this report are preliminary and upon law examiner reviewmay be revised to meet current compliance requirements. Scope In: 1:58:15 PM Scope Withdrawal Time 0 hours 18 minutes 35 seconds Scope Out: 2:22:12 PM Axel Tipton MD PROCEDURE ORD * (ABNORMAL) LIPID PANEL W REFLEX MEASURED LDL (07/26/2023 4:00 PM AQUARIUM SPECIALIST) CHOLESTEROL,TOTAL 162 100 - 199 mg/dL 07/29/2023 2:41 PM AQUARIUM SPECIALIST JOHN RANDOLPH [facility] Comment: Cholesterol, Total Reference Ranges Desirable <200 mg/dL Borderline 200-239 mg/dL High >=240 mg/dL TRIGLYCERIDES 137 <150 mg/dL 07/29/2023 2:41 PM AQUARIUM SPECIALIST [facility] HDL CHOLESTEROL 26(L) >40 mg/dL 2:41 PM AQUARIUM SPECIALIST [facility] NON-HDL CHOLESTEROL 136 <145 mg/dl 07/29/2023 2:41 PM AQUARIUM SPECIALIST [facility] CHOL/HDL RATIO 6.23(H) <4.50 07/29/2023 2:41 PM AQUARIUM SPECIALIST [facility] LDL CHOLESTEROL 109 <=130 mg/dL 07/29/2023 2:41 PM AQUARIUM SPECIALIST [facility] VLDL CHOLESTEROL 27 <=30 mg/dL 07/29/2023 2:41 PM AQUARIUM SPECIALIST [facility] PROVIDER ORDERED STATUS RANDOM 07/29/2023 2:41 PM AQUARIUM SPECIALIST [facility] Blood BLOOD SPECIMEN / Unknown Venipuncture / Unknown 07/26/2023 4:00 PM AQUARIUM SPECIALIST 07/26/2023 4:03 PM AQUARIUM SPECIALIST Jose Latham MD CHEMISTRY [facility] [address] [place] [address], [place] * ANTI HCV (09/14/2020 2:48 PM AQUARIUM SPECIALIST) HEPATITIS C ANTIBODY Non-React dimitry Non-React dimitry 09/14/2020 7:35 PM AQUARIUM SPECIALIST [facility] Comment:Antibodies to HCV no t detected; does not exclude the possibility of exposure to HCV. Blood BLOOD SPECIMEN / Unknown Venipuncture / Unknown 09/14/2020 2:48 PM AQUARIUM SPECIALIST 09/14/2020 3:38 PM AQUARIUM SPECIALIST Pedrito Hale MD SEND OUTS [facility] [address] [place] [address], from Last 3 Months or Most Recently Relevant to Health Maintenance Advance Directives * Full Code (Latest Code Status on File) Date Activated Date Inactivated Comments 05/29/2022 5:54 AM 05/30/2022 4:44 PM Question Answer Comments Code Status Discussion: Unable to Assess Preferences, Provider to review later * Full Code Date Activated Date Inactivated Comments 10/28/2020 6:16 AM 10/29/2020 8:27 PM Question Answer Comments Code Status Discussion: Not Discussed * Full Code Date Activated Date Inactivated Comments 10/11/2020 10:14 AM 10/11/2020 6:16 PM Question Answer Comments Code Status Discussion: Not Discussed Care Teams Patient Support Assistant Relationship Specialty Start Date End Date Santos Rowe MD [address] [facility] [place] [address] PCP - General Family Practice 12/19/23 Santos Rowe MD [address] [facility] [place] [address] Family Practice 12/19/23
--- NOTE | 2024-01-30 10:15 | FL_ITS ---
Patient: [facility] Facility:?[facility] Patient ID:?[id number] Site Patient ID:?[id number]. Site :?[id number] Study:?XRay-Abdomen Barium swallow modified READ-01/30/2024 11:02:22 AM Ordering Physician:?Danuta Reyna Final Report: INDICATION: Dysphagia TECHNIQUE: Modified barium swallow. Fluoroscopic time 1 minute 23 seconds. COMPARISON: None FINDINGS/IMPRESSION: Mild spontaneous aspiration occurred with thin barium at the beginning of the examination due to large bolus. No further aspiration occurred during the study. No obstruction. Normal epiglottis retroversion. Dictated by Jacques Triplett MD @ 01/30/2024 11:55:17 AM Signed by:?Jacques Triplett MD @01/30/2024 11:55:17 AM (Electronic Signature)
== END 2024-01-30 09:53 | disposition home or self-care (01) ==
LOC: RAD 09:52
PROVIDERS: PCP Family Medicine; Visit Provider Internal Medicine Gastroenterology
DX: R13.10 Dysphagia, unspecified (principal); K21.9 Gastro-esophageal reflux disease without esophagitis; R12 Heartburn
CPT/HCPCS: 74230; 92611

== ENCOUNTER 2024-02-18 14:36 | Outpatient (CLI) | payer MEDICARE, BC, SELFPAY ==
--- OUTSIDE RECORDS SUMMARY | 2024-02-18 14:38 | XMS_ITS | Clinical Summary ---
Author Organization [facility] Address [place], [place] [address] Care Team Providers Care Sign Designer Name Role Phone Santos Rowe MD Unavailable [phone] Santos Rowe MD Primary Care Provider Allergies [...] (FLONASE)Indicati ons:AYSE (obstructive sleep apnea) Inhale 1 Beverly to both nostrils once daily. 07/17/2022 Active [...] once daily. 90 Tablet 3 07/26/2023 Active CPAPIndications:O SA (obstructive sleep apnea),Obesity, unspecified [...] be used to read blood sugars, follow cinder pitman directions. 6 Each 3 01/11/2024 Active traMADoL (ULTRAM) 50 mg tabletIndications :Lumbar radiculopathy,DDD (degenerative disc disease), lumbar Take 1 Tablet (50 mg) by mouth 3 times daily if needed for Pain. 24 Tablet 1 02/12/2024 Active traMADoL (ULTRAM) 50 mg tabletIndications :Lumbar radiculopathy,DDD (degenerative disc disease), lumbar Take 1 Tablet (50 mg) by mouth 3 times daily if needed for Pain. 24 Tablet 1 11/18/2023 Discontinue d(Reorder (E-cancel not sent)) Hospital, Clinic, or Other Facility Administered Medication [...] Encounters Date Type Department Care Team Description 02/17/2024 9:35 AM CDT Office Visit [facility] [place] [address] [place] [address] Dick Shoemaker MBBS Allergies 02/17/2024 Travel 02/15/2024 Travel 02/12/2024 9:40 AM CDT Office Visit [facility] [[email or web address] [address] [place] [address] Claude Beckwith MD Follow Up (Back pain) 02/11/2024 Travel 02/06/2024 Orders Only [facility] [[email or web address]] [address] [place] [address] Axel Tipton MD 1 scan: (1-Ord) [place], [place] BARIUM SWALLOW MODIFIED, 01/30/2024 01/21/2024 3:00 PM CDT Office Visit [facility] [[email or web address]] [address] [place] [address] Axel Tipton MD Procedure (endoscopy) 01/21/2024 Telephone [facility] [[email or web address]] [address] [place] [address] Axel Tipton MD VERIFY ORDER 01/21/2024 Travel 01/15/2024 Telephone [facility] [[email or web address]] [address] [place] [address] Axel Tipton MD Appointment Reminder (EGD 01/21/2024) 01/10/2024 11:25 AM CDT Office Visit [facility] [[email or web address]] [address] [place] [address] Yamila Nixon, DO Throat Problem (Pt reports having 2 episodes where he was unable/had difficulty swallowing/unable to swallow own spit, x1 month) 01/10/[address] [phone] Santos Rowe MD Refill Request (continuous glucose monitor SENSOR KIT (FREESYLE NICHOLAS) - asking for upgraded nicholas 3 sensors) 01/10/2024 Telephone [facility] [[email or web address]] [address] [place] [address] Axel Tipton MD Appointment 01/10/2024 Travel 01/10/2024 Nurse Triage [address] [address] Santos Rowe MD Difficulty Swallowing 12/19/2023 11:00 AM CDT Office Visit [facility] [[email or web address] [address] [place] [address] Artemio Vivas MD Sleep Follow-up (cpap) 12/19/2023 Travel 12/15/2023 Travel 11/19/2023 10:40 AM CDT Office Visit [facility] [[email or web address]] at [facility] [address] [place] [address] Claude Beckwith MD Procedure (L4-5 ILESI) 11/18/2023 10:40 AM CDT Office Visit [facility] [[email or web address] [address] [place] [address] Claude Beckwith MD Musculoskeletal Problem (Follow up back pain review MRI) from Last 3 Months Immunizations Name Administration Dates Next Due COVID-19 Vaccine Spikevax (M oderna 50mcg/0.5mL) 12YO+ 5802-4412 Formula PF 07/26/2023 COVID-19 vaccine (Pfizer-Bio NTech [...] 09/09/1986 Smokeless Tobacco: Never Tobacco Cessation:Counseling Given: Yes Alcohol Use Standard Drinks/Week Comments Not Currently [...] Sign Reading Time Taken Comments Blood Pressure 136/77 02/17/2024 9:39 AM CDT Pulse 54 02/17/2024 9:39 AM CDT Temperature 36.8 ??C (98.2 ??F) 01/21/2024 12:40 PM C DT Respiratory Rate 18 02/17/2024 9:39 AM CDT Oxygen Saturation 98% 02/12/2024 9:20 AM CDT Inhaled Oxygen Concentration - - Weight 138.8 kg (306 lb) 02/17/2024 9:39 AM CDT Height 183.5 cm (6' 0.25) 10/08/2023 10:[address] Body Mass Index 41.21 10/08/2023 10:37 AM TECHNICAL ANALYST Plan of Treatment Upcoming Encounters Date Type Department Care Team (Late st Contact Info) Description 02/18/2024 3:40 PM CDT Office Visit [facility] [[email or web address]] at [facility] [address] [place] [address] Claude Beckwith MD [address] [place] [address] Arrived 04/13/2024 9:00 AM CDT Office Visit [facility] [[email or web address]] [address] [place] [address] Claude Beckwith MD [address] [place] [address] Health Maintenance Due Date Last Done Comments AAA screening age 65-74 2020 COVID-19 vaccine series (2022-24 season) 2023 07/26/2023, 07/17/2022, 07/13/2021, Additional history exists Influenza for age 65+ 05/10/2024 07/26/2023 , [...] 18-79 Completed 09/14/2020 Tdap Completed 05/10/2022, 08/18/2012 Pneumococcal series for age 65+ Completed , 08/31/2021 Medical Devices Implanted Type Area Resident Services Manager Device Identifier Shelf Expiration Date Model / Serial / Lot Stent Uret [id number] Contour - [id number] Implanted:Qty: 1 on 10/11/2020 by Stanley Hernandez MD at [facility] Left: [facility]re[facility] 06/10/2023 [id number] / / [id number] Stent Uret [id number] Percuflex Hydroplus - [id number] Implanted:Qty: 1 on 10/28/2020 by Stanley Hernandez MD at [facility] Left: Ureter [facility] 05/03/2023 [id number] / / [id number] Description:6Fx 26cm [place] scientific Percuflex Plus Dr Hernandez 10/28/20. Procedures Procedure Name Priority Date/Time Associated Diagnosis Comments AMB EPIDURAL STEROID INJECTION Routine 0 02/18/2024 8:00 AM CDT Lumbar radiculopathy DDD (degenerative disc disease), lumbar XR VIDEO SWALLOW W SPEECH Routine 2023 12:00 AM CDT Dysphagia, unspecified type Gastroesophageal reflux disease, unspecified whether esophagitis present Heartburn PATH TISSUE EXAM Routine 01/21/2024 1:18 PM CDT Dysphagia, unspecified type Gastroesophageal reflux disease, unspecified whether esophagitis present Heartburn ENDOSCOPY 01/21/2024 12:49 PM CDT ESOPHAGOGASTRODUODENOSCOPY DREA 01/20 12:08 PM CDT Dysphagia, unspecified type AMB EPIDURAL STEROID INJECTION Routine 0 11/19/2023 12:00 AM CDT Lumbar radiculopathy DDD (degenerative disc disease), lumbar COLONOSCOPY SCREENING Routine 08/13/2023 12:34 PM TECHNICAL ANALYST History of colon polyps LIPID PANEL W REFLEX MEASURE D LDL Routine 07/26/2023 4:00 PM TECHNICAL ANALYST 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 Authorizing Provider: ??Axel Tipton MD ?? Collected: ? 01/21/2024 1318 ? Ordering Location: ? [facility] [place] ?? Received: ?01/21/2024 1508 ? Clinic ? Pathologist: ? Elodia Hagen, ? Specimens: ?? A) - Distal Esophagus Biopsy ? B) - Mid Esophagus Biopsy ? 01/23/2024 5:17 PM CDT [employer] Final Diagnosis A) ESOPHAGUS, DISTAL, BIOPSY: 1. Normal esophageal squamous mucosa 2. Negative for reflux changes and eosinophilic esophagitis 3. Negative for columnar mucosa B) ESOPHAGUS, MID, BIOPSY: 1. Normal esophageal squamous mucosa 2. Negative for reflux changes and eosinophilic esophagitis 3. Negative for columnar mucosa 01/23/2024 5:17 PM CDT [facility] Clinical Information Mr. Jimenez is a 68 y.o. with symptoms of dysphagia and esophageal reflux. Upper endoscopy examination revealed no endoscopic abnormalities within the esophagus. 01/23/2024 5:17 PM CDT [facility] Gross Description A) Received in formalin [...] 01/22/2024 10:12 AM 01/23/2024 5:17 PM CDT [facility] Microscopic Description The final diagnosis is based on microscopic examination of appropriate sections of all specimens. 01/23/2024 5:17 PM CDT [facility] Additional Information Interpreted at [facility] - [address] [facility] [address], [place] [address] 01/23/2024 5:17 PM CDT [facility] Other (Distal Esophagus Biopsy) Non-Blood / Unknown 01/21/2024 1:18 PM CDT 01/21/2024 3:08 PM CDT Specimen (specimen) (Mid Esophagus Biopsy) Non-Blood / Unknown 01/21/2024 1:19 PM CDT 01/21/2024 3:08 PM CDT Axel Tipton MD PATHOLOGY/CYTOLOG Y [facility] [address] [place] [address], * ENDOSCOPY (01/21/2024 12:49 PM CDT) 01/21/2024 [...] surgery and alternatives discussed. The endoscope [id number] was introduced through the mouth, and advanced [...] 12:49 PM Procedure Code(s): --- Professional --- 20792, Esophagogastroduodenoscopy, flexible, transoral; with biopsy, single or multiple Diagnosis Code(s): --- Professional --- R13.10, Dysphagia, unspecified K21.9, Gastro-esophageal reflux diseasewithout esophagitis R12, Heartburn CPT copyright 2022 [employer]. All rights reserved. The codes documented in this report are preliminary and upon glassware verifier reviewmay be revised to meet current compliance requirements. Scope In: 1:15:47 PM Scope Out: 1:20:55 PM Axel Tipton MD PROCEDURE ORD * AMB EPIDURAL STEROID INJECTION (11/19/2023 12:00 AM CDT) Claude Beckwith MD NEUROLOGY ORD * COLONOSCOPY (08/13/2023 11:42 AM TECHNICAL ANALYST) 08/13/2023 11:4 2 AM TECHNICAL ANALYST Narrative Transcriptions Axel Tipton MD - 08/13/2023 [...] adequate candidate for conscious sedation. The endoscope [id number] was passed through the anus andadvanced to [...] 11:42 AM Procedure Code(s): --- Professional --- 49164, Colonoscopy, flexible; with removalof tumor(s), polyp(s), or other lesion(s) bysnare technique Diagnosis Code(s): --- Professional --- D12.2, Benign neoplasm of ascending colon D12.8, Benign neoplasm of rectum Z86.010, Personal history of colonicpolyps CPT copyright 2021 [employer]. All rights reserved. The codes documented in this report are preliminary and upon glassware verifier reviewmay be revised to meet current compliance requirements. Scope In: 1:58:15 PM Scope Withdrawal Time 0 hours 18 minutes 35 seconds Scope Out: 2:22:12 PM Axel Tipton MD PROCEDURE ORD * (ABNORMAL) LIPID PANEL W REFLEX MEASURED LDL (07/26/2023 4:00 PM TECHNICAL ANALYST) CHOLESTEROL,TOTAL 162 100 - 199 mg/dL 07/29/2023 2:41 PM TECHNICAL ANALYST [facility]AT[facility] Comment: Cholesterol, Total Reference Ranges Desirable <200 mg/dL Borderline 200-239 mg/dL High >=240 mg/dL TRIGLYCERIDES 137 <150 mg/dL 07/29/2023 2:41 PM TECHNICAL ANALYST [facility] HDL CHOLESTEROL 26(L) >40 mg/dL 2:41 PM TECHNICAL ANALYST [facility] NON-HDL CHOLESTEROL 136 <145 mg/dl 07/29/2023 2:41 PM TECHNICAL ANALYST [facility] CHOL/HDL RATIO 6.23(H) <4.50 07/29/2023 2:41 PM TECHNICAL ANALYST [facility] LDL CHOLESTEROL 109 <=130 mg/dL 07/29/2023 2:41 PM TECHNICAL ANALYST [facility] VLDL CHOLESTEROL 27 <=30 mg/dL 07/29/2023 2:41 PM TECHNICAL ANALYST [facility] PROVIDER ORDERED STATUS RANDOM 07/29/2023 2:41 PM TECHNICAL ANALYST [facility] Blood BLOOD SPECIMEN / Unknown Venipuncture / Unknown 07/26/2023 4:00 PM TECHNICAL ANALYST 07/26/2023 4:03 PM TECHNICAL ANALYST Jose Latham MD CHEMISTRY [facility] [address] [address], * ANTI HCV (09/14/2020 2:48 PM TECHNICAL ANALYST) Pathologist [facility] HEPATITIS C ANTIBODY Non-React dimitry Non-React dimitry 09/14/2020 7:35 PM TECHNICAL ANALYST [facility] Comment:Antibodies to HCV no t detected; does not exclude the possibility of exposure to HCV. Blood BLOOD SPECIMEN / Unknown Venipuncture / Unknown 09/14/2020 2:48 PM TECHNICAL ANALYST 09/14/2020 3:38 PM TECHNICAL ANALYST Pedrito Hale MD SEND OUTS [facility] LAB[facility] [address] [place] [address], from Last 3 Months or Most Recently [...] Code Status Discussion: Not Discussed Care Teams Sign Designer Relationship Specialty Start Date End Date Santos Rowe MD [address] [place] [address] [place] [address] PCP - General Family Practice 12/19/23 Santos Rowe MD [address] [place] [address] [place] [address] Family Practice 12/19/23
--- OUTSIDE RECORDS SUMMARY | 2024-02-18 14:38 | XMS_ITS | Data Portability ---
Author Organization [facility], [facility] Address [address] [facility] [address] [place] [address] Assessment Encounter Date Assessment Date Assessment LastModified by Organization Details LastModified Time 07/16/2022 07/16/2022 67-year-old male with history of nephrolithias is, elevated PSA, and BPH with lower urinary tract symptoms status post TURP Not available 07/16/2022 16:20:34 01/28/2023 01/28/2023 67-year-old male with history of nephrolithias is, elevated PSA, and BPH with lower urinary tract symptoms status post TURP rstromquist Not available 01/25/2023 15:24:28 02/13/2023 02/13/2023 67-year-old male with history of nephrolithias is, elevated PSA, and BPH with lower urinary tract symptoms status post TURP Not available 02/13/2023 09:51:26 08/28/2023 08/28/2023 68-year-old male with history of nephrolithias is, elevated PSA, and BPH with lower urinary tract symptoms status post TURP rstromquist Not available 08/26/2023 16:53:39 01/29/2024 01/29/2024 68-year-old male with history of nephrolithias is, elevated PSA, and BPH with lower urinary tract symptoms status post TURP rstromquist Not available 01/27/2024 16:20:13 Plan of Treatment Reminders Order Date Submit Date Provider Last Modified By Organization Details Last Modified Time Details Appointments None recorded . Lab urinalys is, dipstick 2022 023 [facility]ers [facility], [address], [place], [address], 3 10:56:30 Referral None recorded . Procedures None recorded . Surgeries None recorded . Imaging None recorded . Medication Orders finaster melba 5 mg [facility]22 [facility]23 [id number], [address] [place], [place], [id number], 4 11:53:09 Patient TargetsNo targets recorded. Patient InstructionsNo instructions recorded. Reason for Referral None Reported. Results Created Date Observation Date Name Description Value Unit Range Abnormal Flag LastModifiedBy Organization Detail LastModifiedTime 02/14/20 23 02/13/2023 urina lysis , dipst ick Color-Status Yellow Not Available [facility] [address], [place], [address], 02/13/2023 10:55:24 02/14/20 23 02/13/2023 urina lysis , dipst ick Clarity-Stat us Clear Not Available [facility] [address], [place], [address], 02/13/2023 10:55:24 02/14/20 23 02/13/2023 urina lysis , dipst ick Glucose-Stat us Negati ve Not Available [facility] [address], [place], [address], 02/13/2023 10:55:24 02/14/20 23 02/13/2023 urina lysis , dipst ick Bilirubin-St atus Negati ve Not Available [facility] [address], [place], [address], 02/13/2023 10:55:24 02/14/20 23 02/13/2023 urina lysis , dipst ick Ketones-Stat us Negati ve Not Available [facility] [address], [place], [address], 02/13/2023 10:55:24 02/14/20 23 02/13/2023 urina lysis , dipst ick Nitrates-Sta tus negati ve Not Available [facility] [address], [place], [address], 02/13/2023 10:55:24 02/14/20 23 02/13/2023 urina lysis , dipst ick Blood-Status Modera te Not Available [facility] [address], [place], [address], 02/13/2023 10:55:24 02/14/20 23 02/13/2023 urina lysis , dipst ick Leuko-Status Negati ve Not Available [facility] [address], [place], [address], 02/13/2023 10:55:24 10/07/19 21 09/15/2020 CT, urogr am No observ ation record ed. Not Available 07/16/2022 16:19:28 10/13/19 21 10/11/2020 XR, urogr am, retro grade No observ ation record ed. Not Available 07/16/2022 16:19:28 07/17/20 22 07/16/2022 bladd er scan (PROC ) No observ ation record ed. Not Available 01/28/2023 12:48:31 07/17/20 22 07/16/2022 urofl owmet ry* No observ ation record ed. Not Available 01/28/2023 12:48:31 Result Notes None recorded. Problems Name Status Onset Date Resolution Date Notes Provider Name and Address Organization Details Recorded Time Prostate specific antigen above reference range Active 11/20/19 13 790.93 : ELEVATED PSA Not Available [facility] 02/25/[facility] 02:07:20 Problem Notes None recorded. Procedures Surgical History Date Name Laterality Status Provider Name and Address Organization Details Recorded Time 05/22/202 4 COMPLEX VISIT completed Stanley Hernandez MD [address] [facility],[address], [place], [address], [facility] 01/29/2024 09:13:49 4 Bladder Scan completed Michelle Tierney null, [facility] 01/29/2024 11:53:43 3 Bladder Scan completed Michelle Tierney null, [facility] 08/28/2023 10:43:52 3 colonoscopy completed Stanley Hernandez MD [address] [place] [address],[address], [place], [address], [facility] 08/28/2023 10:33:21 3 Bladder Scan completed Stanley Hernandez MD [address] [place] [address],[address], [place], [address], [facility] 01/28/2023 12:37:23 2 Flow Rate / Uroflow completed Pa hunter, [facility] 07/16/2022 15:49:34 2 Bladder Scan completed Pa hunter, [facility] 07/16/2022 15:48:19 2 CYSTOURETHROSCO PY, WITH IRRIGATION AND EVACUATION OF CLOTS (SURG) completed Stanley Hernandez MD [address] [place] [address],[address], [place], [address], [facility] 07/16/2022 16:19:28 Imaging Results Imaging Date Name Status [facility]Modified by [facility] Details LastModified Time 09/15/2020 CT, urogram completed [employer] Information n ot available 07/16/2022 16:19:28 10/11/2020 XR, urogram, retrograde completed [email or web address] Information not available 07/16/2022 16:19:28 07/16/2022 bladder scan (PROC) completed [employer] Information not available 01/28/2023 12:48:31 07/16/2022 uroflowmetry* completed [employer] Information not available 01/28/2023 12:48:31 Procedure Notes None recorded. Medical Equipment None [...] TAKE 1 TABLET BY MOUTH EVERY DAY 2023 active Not Available Not Available Not Avai lable Microlet Lancet USE TO TEST ONCE DAILY [...] and Address Organization Details Last Updated DateTime 07/16/2022 182.88 cm 35.7 kg/m2 079068.79 g Pa Rhodes [facility] 07/16/2022 15:37:29 Date Recorded Body height Body mass index (BMI) Body weight Provider Name and Address Organization Details Last Updated DateTime 01/28/2023 182.88 cm 35.7 kg/m2 503709.79 g Michelle Tierney [facility] 01/28/2023 12:32:27 Date Recorded Body height Body mass index (BMI) Body weight Provider Name and Address Organization Details Last Updated DateTime 02/13/2023 182.88 cm 37 kg/m2 454685.72 g Pa Rhodes [facility] 02/13/2023 10:53:05 Date Recorded Body height Body mass index (BMI) Body weight Provider Name and Address Organization Details Last Updated DateTime 08/28/2023 182.88 cm 39.3 kg/m2 398438.79 g Stanley Hernandez MD [address] [facility] [address], [place], [address] 08/28/2023 10:29:03 Date Recorded Body height Body mass index (BMI) Body weight Provider Name and Address Organization Details Last Updated DateTime 01/29/2024 182.88 cm 39.3 kg/m2 515705.79 g Michelle Tierney [facility] 01/29/2024 11:49:16 Social History Question Answer Notes LastModified by Organizat ion Details LastModified Time Tobacco Smoking Status Former Smoker Pa hunter [facility] 07/16/2022 15:40:06 What Is Your Level Of [...] Name and Address Organization Details Recorded Time Influenza, adjuvanted, quadrivalent, PF 07/26/2023 completed Stanley Hernandez MD [address] [place] [address], [address], [facility] 08/28/2023 10:29:24 Pneumococcal conjugate PCV20, polysaccharide [id number] conjugate, adjuvant, PF 07/26/2023 completed Stanley Hernandez MD [address] [place] [address], [address], [facility] 08/28/2023 10:29:24 COVID-19, mRNA, LNP-S, PF, 50 mcg/0.5 mL 07/26/2023 completed Stanley Hernandez MD [address] [place] [address], [address], [facility] 08/28/2023 10:29:24 RSV, bivalent, protein subunit RSVpreF, diluent reconstituted, 0.5 mL, PF 08/27/2023 completed Michelle Tierney [facility] 01/29/2024 11:49:27 zoster recombinant 03/05/2019 completed Romina Sinha null, [facility] 07/03/2023 12:36:03 zoster recombinant 06/12/2019 completed Romina Sinha null, [facility] 07/03/2023 12:36:03 Influenza, adjuvanted, quadrivalent, PF 05/10/2022 completed Romina Sinha null, [facility] 07/03/2023 12:36:03 Influenza, adjuvanted, quadrivalent, PF 07/07/2020 completed Romina Sinha null, [facility] 07/03/2023 12:36:03 Influenza, adjuvanted, quadrivalent, PF 07/13/2021 completed Romina Sinha null, [facility] 07/03/2023 12:36:03 COVID-19, mRNA, LNP-S, PF, 30 mcg/0.3 mL dose 11/13/2020 completed Romina Sinha null, [facility] 07/03/2023 12:36:03 COVID-19, mRNA, LNP-S, PF, 30 mcg/0.3 mL dose 12/15/2020 completed Romina Sinha null, [facility] 07/03/2023 12:36:04 COVID-19, mRNA, LNP-S, PF, 30 mcg/0.3 mL dose 07/13/2021 completed Romina Sinha null, [facility] 07/03/2023 12:36:04 pneumococcal polysaccharide PPV23 08/31/2021 completed Romina Sinha null, [facility] 07/03/2023 12:36:04 Tdap 05/10/2022 completed Romina Sinha null, [facility] 07/03/2023 12:36:04 Tdap 08/18/2012 completed Romina Sinha null, [facility] 07/03/2023 12:36:04 Novel Mnjzzuuyk-[id number], all formulations 09/07/2009 completed Romina Sinha null, [facility] 07/03/2023 12:36:04 zoster live 08/27/2014 completed Romina hunter [facility] 07/03/2023 12:36:04 Influenza, split virus, trivalent, preservative 05/28/2011 [facility]23 12:36:04 Influenza, split virus, trivalent, preservative 06/04/2013 [facility]23 12:36:04 Influenza, split virus, trivalent, preservative 07/22/2003 [facility]23 12:36:04 Influenza, split virus, trivalent, preservative 08/18/2012 [facility]/2023 12:36:04 Influenza, split virus, trivalent, preservative 08/20/2005 [facility]23 12:36:04 Influenza, split virus, trivalent, PF 09/07/2009 [facility] 07/03/2023 12:36:04 Td (adult), 2 Lf tetanus toxoid, preservative free, adsorbed 04/15/2003 [facility] 07/03/2023 12:36:04 Influenza, split virus, quadrivalent, PF 06/12/2019 [facility] 07/03/2023 12:36:04 Influenza, split virus, quadrivalent, PF 08/27/2014 [facility] 07/03/2023 12:36:04 COVID-19, mRNA, LNP-S, bivalent, PF, 30 mcg/0.3 mL dose 07/17/2022 [facility]23 12:36:12 Past Encounters Encounter ID Performer Location Encounter Start Date Encounter Closed Date Diagnosis/Indication Diagnosis SNOMED-CT Code [id number] Stanley Hernandez MD [facility] [address] [place] [address] 07/16/2022 15:14:18 07/18/2022 12:32:08 Lower urinary tract symptoms due to benign prostatic hypertrophy 81480586178192 Prostate s pecific antigen above reference range 579286383 Uric acid renal calculus 078364649 [id number] Stanley Hernandez MD [facility] [place] [address] [place] [address] 01/28/2023 12:27:42 02/05/2023 13:50:45 Lower urinary tract symptoms due to benign prostatic hypertrophy 28819056453463 Prostate s pecific antigen above reference range 147035361 Uric acid renal calculus 197253443 Blood in urine 59440130 [id number] Stanley Hernandez MD [facility] [address] [place] [address] 02/13/2023 10:38:59 02/15/2023 15:06:59 Lower urinary tract symptoms due to benign prostatic hypertrophy 78242072153680 Prostate s pecific antigen above reference range 981443436 Uric acid renal calculus 465271020 Blood in urine 17977500 [id number] Stanley Hernandez MD [facility] [address] [place] [address] 08/28/2023 10:17:02 08/28/2023 15:25:53 Lower urinary tract symptoms due to benign prostatic hypertrophy 94619263329116 Prostate s pecific antigen above reference range 373171547 Uric acid renal calculus 705424685 Blood in urine 51231203 [id number] Stanley Hernandez MD [facility] [address] [place] [address] 01/29/2024 11:33:42 01/31/2024 08:58:08 Lower urinary tract symptoms due to benign prostatic hypertrophy 67764039789168 Prostate s pecific antigen above reference range 310717210 Uric acid renal calculus 386092907 Blood in urine 40395000 Health Concerns Section Related Observation LastModified by Organization Detai ls LastModified Time None Recorded Concern Status LastModified by Organization Details LastModified Time None Recorded Advance Directives Directive None Recorded Payers Encounter Date Sequence Insurance Name Policy Number Policy Barr Covered Member ID Barr Member ID Guarantor Name 01/29/2024 1 [employer] [id number] Basilio A Barbara [id number] Basilio A Jimenez 08/28/2023 1 [place] [id number] Basilio A Jimenez [id number] Basilio A Jimenez 02/13/2023 1 [place] [id number] Basilio A Barbara [id number] Basilio A Jimenez 01/28/2023 1 [place] [id number] Basilio A Barbara [id number] Basilio A Jimenez 07/16/2022 1 [place] [id number] Basilio A Barbara [id number] Basilio A Jimenez Notes Date Note Type Note Provider Name and Address Organization Details Recorded Time 07/16/2022 text/html HPI Notes: Mr. Milli calzada is a 67-year-old male who is long followed with me at our [place] office for history of urolithiasis, BPH with lower urinary tract symptoms, and elevated PSA. He is now status post transurethral resection of the prostate and overall doing very well. Reports significantly improved flow and feels as though he is emptying his bladder completely. He did see a slight recurrence in his hematuria but it is since resolved. Stanley Hernandez MD [address] [place] [address],[address], [place], [address], [facility] 07/16/2022 16:24:45 01/28/2023 text/html HPI Notes: Mr. Milli calzada is a 67-year-old male who is long followed with me at our [place] office for history of urolithiasis, BPH with [...] then has seen clear urine ever since. Stanley Hernnadez MD [address] [place] [address],[address], [place], [address], [facility] 01/28/2023 12:51:01 02/13/2023 text/html HPI Notes: Mr. Milli calzada is a 67-year-old male who is long followed with me at our [place] office for history of urolithiasis, BPH with [...] and elevated PSA. Was admitted to the [facility] after presenting multiple times with hematuria and clot retention. Urine now clear Seen today with his who provides some of the history. Stanley Hernandez MD [address] [place] [address],[address], [place], [address], [facility] 02/13/2023 14:05:37 08/28/2023 text/html HPI Notes: Mr. Milli calzada is a 68-year-old male who is long followed with me at our [place] office for history of urolithiasis, BPH with [...] and elevated PSA. Was admitted to the [facility] after presenting multiple times with hematuria and clot retention. Urine now clear Seen today with his who provides some of the history. 08/28/2023: Here for follow-up urolithiasis s/p URS with LL, BPH with lower urinary tract symptoms s/p TURP, and elevated PSA. Today reports he is doing very well. Stanley Hernandez MD [address] [place] [address],[address], [place], [address], [facility] 08/28/2023 13:59:33 01/29/2024 text/html HPI Notes: Mr. Milli calzada is a 68-year-old male who is long followed with me at our [place] office for history of urolithiasis, BPH with [...] and elevated PSA. Was admitted to the [facility] after presenting multiple times with hematuria and [...] Continues to do great. Stanley Hernandez MD [address] [facility],[address], [place], [address], [facility] 01/29/2024 13:33:01
== END 2024-02-18 14:37 | disposition home or self-care (01) ==
LOC: INJ CL 14:36
PROVIDERS: PCP Family Medicine; Visit Provider Family Medicine
DX: M54.16 Radiculopathy, lumbar region (principal); M51.36 Other intervertebral disc degeneration, lumbar region
CPT/HCPCS: 62323; J0702; Q9966

== ENCOUNTER 2025-01-08 15:18 | Emergency (ER) | payer MEDICARE, BC, SELFPAY ==
--- OUTSIDE RECORDS SUMMARY | 2025-01-08 15:21 | XMS_ITS | Data Portability ---
Author Organization [facility], [facility] Address [address] [facility] [address] [place] [address] Assessment Encounter Date Assessment Date Assessment LastModified by Organization Details LastModified Time 02/13/2023 02/13/2023 67-year-old male with history of nephrolithias is, elevated PSA, and BPH with lower urinary tract symptoms status post TURP [email or web address] Not available 02/13/2023 09:51:26 08/28/2023 08/28/2023 68-year-old male with history of nephrolithias is, elevated PSA, and BPH with lower urinary tract symptoms status post TURP [email or web address] Not available 08/26/2023 16:53:39 01/29/2024 01/29/2024 68-year-old male with history of nephrolithias is, elevated PSA, and BPH with lower urinary tract symptoms status post TURP [email or web address] Not available 01/27/2024 16:20:13 09/10/2024 09/10/2024 69-year-old male with history of nephrolithias is, elevated PSA, and BPH with lower urinary tract symptoms status post TURP [email or web address] Not available 08/31/2024 15:02:39 12/17/2024 12/17/2024 69-year-old male with history of nephrolithias is, elevated PSA, and BPH with lower urinary tract symptoms status post TURP [email or web address] Not available 12/17/2024 14:35:36 Plan of Treatment Reminders Order Date Submit Date Provider Last Modified By Organization Details Last Modified Time Details Appointments URONAV 30 2024 01:30P M [facility] M Not available Not available Not available URONAV 30 2024 01:30P M SAÚL NOLASCO MD Not available Not available Not available Lab PSA, serum or plasma 2024 025 [email or web address] [facility], [address], [place], [address], 12/17/2024 14:49:08 urinaly sis, dipstic k 2024 025 [email or web address] [facility], [address], [place], [address], 12/17/2024 14:49:08 urinaly sis, dipstic k 2024 025 [email or web address] [facility], [address], [place], [address], 09/10/2024 12:26:17 PSA, serum or plasma 2024 025 [email or web address] [facility], [address], [place], [address], 09/10/2024 12:26:11 urinaly sis, dipstic k 2022 023 [email or web address] [facility], [address], [place], [address], 02/13/2023 10:56:30 Referral None recorde d. Procedures None recorde d. Surgeries None recorde d. Imaging MRI, prostat e, w/wo contras t 2024 025 [email or web address] [facility], [address], [address], [place], [address], 12/17/2024 15:04:40 CT, abdomen + pelvis, w/o contras t 2024 025 [facility] , [address], [place], [address], 09/14/2024 16:54:29 Medication Orders holdenastnohemy ride 5 mg tablet 2022 023 [id number], [address] [place], [place], [id number], 01/29/2024 11:53:09 Patient TargetsNo targets recorded. Patient InstructionsNo instructions recorded. Reason for Referral None Reported. Results Created Date Observation Date Name Description Value Unit Range Abnormal Flag Note LastModifiedBy Organization Detail LastModifiedTime 02/14/2002/13/2023 urina lysis , dipst ick Color-Status Yellow Not Available [facility] [address], [place], [address], 02/13/2023 10:55:24 02/14/20 23 02/13/2023 urina lysis , dipst ick Clarity-Stat us Clear Not Available [facility] [address], [place], [address], 02/13/2023 10:55:24 02/14/20 23 02/13/2023 urina lysis , dipst ick Glucose-Stat us Negati ve Not Available [facility] [address], [place], [address], 02/13/2023 10:55:24 02/14/20 23 02/13/2023 urina lysis , dipst ick Bilirubin-St atus Negati ve Not Available [facility] [address], [place], [address], 02/13/2023 10:55:24 02/14/20 23 02/13/2023 urina lysis , dipst ick Ketones-Stat us Negati ve Not Available [facility] [address], [place], [address], 02/13/2023 10:55:24 02/14/20 23 02/13/2023 urina lysis , dipst ick Nitrates-Sta tus negati ve Not Available [facility] [address], [place], [address], 02/13/2023 10:55:24 02/14/20 23 02/13/2023 urina lysis , dipst ick Blood-Status Modera te Not Available [facility] [address], [place], [address], 02/13/2023 10:55:24 02/14/20 23 02/13/2023 urina lysis , dipst ick Leuko-Status Negati ve Not Available [facility] [address], [place], [address], 02/13/2023 10:55:24 09/10/19 25 09/10/2024 urina lysis , dipst ick BLOOD Large (250 RBC/uL ) Not Available [facility] [address], [place], [address], 09/10/2024 12:25:37 09/10/19 25 09/10/2024 urina lysis , dipst ick BILIRUBIN Negati ve Not Available [facility] [address], [place], [address], 09/10/2024 12:25:37 09/10/19 25 09/10/2024 urina lysis , dipst ick UROBILINOGEN 0.2 mg/dL (Norm) Not Available [facility] [address], [place], [address], 09/10/2024 12:25:37 09/10/19 25 09/10/2024 urina lysis , dipst ick KETONES Negati ve Not Available [facility] [address], [place], [address], 09/10/2024 12:25:37 09/10/19 25 09/10/2024 urina lysis , dipst ick PROTEIN 100 mg/dL Not Available [facility] [address], [place], [address], 09/10/2024 12:25:37 09/10/19 25 09/10/2024 urina lysis , dipst ick NITRITES Negati ve Not Available [facility] [address], [place], [address], 09/10/2024 12:25:37 09/10/19 25 09/10/2024 urina lysis , dipst ick GLUCOSE 250 mg/dL Not Available [facility] [address], [place], [address], 09/10/2024 12:25:37 09/10/19 25 09/10/2024 urina lysis , dipst ick S.G. (Specific [place]) 1.025 Not Available [facility] [address], [place], [address], 09/10/2024 12:25:37 09/10/19 25 09/10/2024 urina lysis , dipst ick LEUKOCYTES Trace (10 WBC/uL ) Not Available [facility] [address], [place], [address], 09/10/2024 12:25:37 09/10/19 25 09/10/2024 PSA, serum or plasm a PSA 6.5ng/ ml 0-4.0 NG/mL Not Available [facility] [address], [place], [address], 09/10/2024 12:25:21 12/18/19 25 12/17/2024 PSA, serum or plasm a PSA 26.5 ng/ml 0-4.0 NG/mL Not Available [facility] [address], [place], [address], 12/17/2024 14:23:48 12/18/19 25 12/17/2024 urina lysis , dipst ick BLOOD Negati ve Not Available [facility] [address], [place], [address], 12/17/2024 14:22:34 12/18/19 25 12/17/2024 urina lysis , dipst ick BILIRUBIN Small (0.5 mg/dL) Not Available [facility] [address], [place], [address], 12/17/2024 14:22:34 12/18/19 25 12/17/2024 urina lysis , dipst ick UROBILINOGEN 0.2 mg/dL (Norm) Not Available [facility] [address], [place], [address], 12/17/2024 14:22:34 12/18/19 25 12/17/2024 urina lysis , dipst ick KETONES Negati ve Not Available [facility] [address], [place], [address], 12/17/2024 14:22:34 12/18/19 25 12/17/2024 urina lysis , dipst ick PROTEIN Trace (10 mg/dL) Not Available [facility] [address], [place], [address], 12/17/2024 14:22:34 12/18/19 25 12/17/2024 urina lysis , dipst ick NITRITES Negati ve Not Available [facility] [address], [place], [address], 12/17/2024 14:22:34 12/18/19 25 12/17/2024 urina lysis , dipst ick GLUCOSE Negati ve Not Available [facility] [address], [place], [address], 12/17/2024 14:22:34 12/18/19 25 12/17/2024 urina lysis , dipst ick p.H. 5.0 Not Available [facility] [address], [place], [address], 12/17/2024 14:22:34 12/18/19 25 12/17/2024 urina lysis , dipst ick S.G. (Specific [place]) 1.025 Not Available [facility] [address], [place], [address], 12/17/2024 14:22:34 12/18/19 25 12/17/2024 urina lysis , dipst ick LEUKOCYTES Negati ve Not Available [facility] [address], [place], [address], 12/17/2024 14:22:34 09/14/19 25 09/14/2024 CT, abdom en + pelvi s, w/o contr ast EXAM: CT, ABDOME N + PELVIS , W/O CONTRA ST [facility]ATI [facility]: [facility] DATE: 09/14/19 INDICA TION: Calcul us of kidney . COMPAR BOB: None. TECHNI QUE: CT scan of the abdome n and pelvis was perfor med withou t IV contra st. Multip lanar reform ats were obtain ed. Dose reduct ion techni ques were used. CONTRA ST: None. FINDIN GS: LOWER CHEST: Normal . HEPATO BILIAR Y: Diffus e hepati c steato sis. Mild focal fatty sparin g near the gallbl adder fossa. No signif icant mass. No bile duct dilata tion. No calcif ied gallst ones. PANCRE : Normal . SPLEEN : Normal . ADRENA L GLANDS : There are adrena l lesion s less than 1 cm. No follow up is needed for nodule s this size. KIDNEY S/BLAD JING: A 4 mm nonobs tructi ng left lower pole intrar enal calcul us is presen t. No additi onal KUB calcul i. No hydron ephros is. There are severa l low-de nsity probab le cysts involv ing the left kidney , which do not requir e follow -up. Urinar y bladde r is decomp ressed . There is mild urinar y bladde r wall thicke chrystal, which is likely accent uated by underd istent ion. BOWEL: A simple -appea ring, oval-s haped, fat densit y observ ation in the ascend ing colon measur ing up to 2.8 cm (2-127 ) likely repres ents a lipoma or ingest ed materi al. No specif ic follow -up is recomm ended. LYMPH NODES: Normal . VASCUL ATURE: Modera te athero sclero sis in the abdomi nal aorta and iliac arteri es. No aneury smal dilati on. PELVIC ORGANS : Prosta tomega ly. MUSCUL OSKELE IKE: Degene rative change s of the spine. Soft tissue ossifi cation latera l to the right hip. No acute osseou s abnorm ality. Tiny fat-co ntaini ng noninf lamed umbili anastasia hernia . Postsu rgical change of the right lower quadra nt anteri or abdomi nal wall. IMPRES JODY: 1. Single 4 mm left lower pole intrar enal calcul us. No hydron ephros is. 2. Probab le left renal cysts. No follow -up is necess ghassan. 3. Mild urinar y bladde r wall thicke chrystal, likely second ghassan to underd istent ion and/or hypert rophy. Recomm end correl ation with urinal ysis to exclud e cystit is if clinic ally indica raz. 4. Prosta tomega ly. 5. Nonacu te findin gs as above. This report was electr onical ly interp reted by: Marquez Medina DO on 2024 at 15:52 [facility] [address] [place] [address] [address], [place], [address], 10/12/2024 11:38:08 01/02/20 25 12/31/2024 MRI, prost ate, w/wo contr ast No observ ation record ed. saljelisa [facility] [address], [place], [address], 01/07/2025 14:56:09 Result Notes None recorded. Problems Name Problem SNOMED Code Status Onset Date Resolution Date Notes Provider Name and Address Organization Details Recorded Time Prostate specific antigen above reference range 165071090 Active 2012 790.93 : ELEVATED PSA MARCEL POPE PA-C [address] [facility],[address], [place], [address], [facility] 14:47:57 Lower urinary tract symptoms due to benign prostatic hypertrop hy 857332055230 01 Active 2024 MARCEL POPE PA-C [address] [place] [address],[address], [place], [address], [facility] 14:35:38 Uric acid renal calculus 934684679 Active 2024 MARCEL POPE PA-C [address] [facility],[address], [place], [address], [facility] 14:35:38 Blood in urine 27464654 Active 2024 MARCEL POPE PA-C [address] [facility],[address], [place], [address], [facility] 14:35:39 Problem Notes None recorded. Procedures Surgical History Date Name Laterality Status Provider Name and Address Organization Details Recorded Time 09/10/19 25 COMPLEX VISIT completed Stanley Hernandez MD [address] [facility],[address], [place], [address], [facility] 09/10/2024 08:30:03 09/10/19 25 Bladder Scan completed Mely Dominguez [facility] 09/10/2024 12:25:16 09/10/19 25 Blood Draw/HOME ATTENDANT/PSA RESULTS completed Michelle Vargas [facility] 08/31/2024 15:02:42 01/29/20 24 COMPLEX VISIT completed Stanley Hernandez MD [address] [place] [address],[address], [place], [address], [facility] 01/29/2024 09:13:49 01/29/20 24 Bladder Scan completed Michelle Tierney [facility] 01/29/2024 11:53:43 08/28/20 23 Bladder Scan completed Michelle Tierney [facility] 08/28/2023 10:43:52 07/21/20 23 colonoscopy completed Stanley Hernandez MD [address] [place] [address],[address], [place], [address], [facility] 08/28/2023 10:33:21 01/29/20 23 Bladder Scan completed Stanley Hernandez MD [address] [place] [address],[address], [place], [address], [facility] 01/28/2023 12:37:23 07/16/20 22 Flow Rate / Uroflow completed Pa Rhodes [facility] 07/16/2022 15:49:34 07/16/20 22 Bladder Scan completed Pa Rhodes [facility] 07/16/2022 15:48:19 05/29/20 22 CYSTOURETHROSCO PY, WITH IRRIGATION AND EVACUATION OF CLOTS (SURG) completed Stanley Hernandez MD [address] [facility],[address], [place], [address], [facility] 07/16/2022 16:19:28 Imaging Results Imaging Date Name Status LastModified by Organiz ation Details LastModified Time 09/14/2024 CT, abdomen + pelvis, w/o contrast completed [facility] [address] [facility] [address], [place], [address], 10/12/2024 11:38:08 12/31/2024 MRI, prostate, w/wo contrast completed [facility] [address], [place], [address], 01/07/2025 14:56:09 Procedure Notes None recorded. Medical Equipment None [...] TAKE 1 TABLET BY MOUTH ONCE DAILY. 09/10 completed Not Available Not Available Not Available prednisone 10 mg tablet 01/28 completed Not Available Not Available Not Available doxycycline hyclate 100 mg capsule 01/28 completed Not Available Not Available Not Available hydrocodone 5 mg-acetamin ophen 325 mg tablet TAKE 1-2 TABLETS BY MOUTH EVERY 4-6 HOURS NEEDED FOR PAIN active Not Available Not Available No t Available prednisone 20 mg tablet TAKE 1 [...] Available Not Available No t Available calcium 250 mg (as citrate) tablet TAKE ONE TABLET TWICE DAILY 02/13 [...] Not Available No t Available FreeStyle Nicholas 3 Sensor device USE TO READ BLOOD SUGARS PER MANUFACTU RER DIRECTION S active Not Available Not Available No t Available Vitals Date Recorded Body height Body mass index (BMI) Body weight Provider Name and Address Organization Details Last Updated DateTime 02/13/2023 182.88 cm 37 kg/m2 045059.72 g Pa Rhodes [facility] 02/13/2023 10:53:05 Date Recorded Body height Body mass index (BMI) Body weight Provider Name and Address Organization Details Last Updated DateTime 08/28/2023 182.88 cm 39.3 kg/m2 722080.79 g Stanley Hernandez MD [address] [facility] [address], [address] 08/28/2023 10:29:03 Date Recorded Body height Body mass index (BMI) Body weight Provider Name and Address Organization Details Last Updated DateTime 01/29/2024 182.88 cm 39.3 kg/m2 924483.79 g Michelle Tierney [facility] 01/29/2024 11:49:16 Date Recorded Body height Body mass index (BMI) Body weight Provider Name and Address Organization Details Last Updated DateTime 09/10/2024 182.88 cm 39.3 kg/m2 543938.79 g Mely Dominguez [facility] 09/10/2024 12:24:24 Date Recorded Body height Body mass index (BMI) Body weight Provider Name and Address Organization Details Last Updated DateTime 12/17/2024 182.88 cm 39.3 kg/m2 635291.79 g Maureen Narayanan [facility] 12/17/2024 14:21:15 Social History Question Answer Notes LastModified by Organizat ion Details LastModified Time Tobacco Smoking Status Former Smoker Pa Rhodes [facility] 07/16/2022 15:40:06 Do You Have An Advance Directive? No [email or web address] Information not available 09/10/2024 What Is Your Level Of Alcohol Consumption? [...] Drug Use No Information not available 07/16/2022 Do You Have A Medical Power Of Straddle Bug Driver? No [email or web address] Information not available 09/10/2024 What Was The Date Of Your Most Recent Tobacco Screening? 12/17/2024 [email or web address] Information not available 12/17/2024 Have You Ever Been Counseled For Unhealthy Alcohol Use? No [email or web address] Information not available 09/10/2024 What Is Your Relationship Status? Information not available 07/16/2022 How Much Tobacco Do You Smoke? 1 PPW [email or web address] Information not available 09/10/2024 Do You Use Any Illicit Or Recreational Drugs? No Information not available 02/13/2023 Has Tobacco Cessation Counseling Been Provided? No Information not available 07/16/2022 How Many Years Have You Smoked Tobacco? 20 Information not available 07/16/2022 Do You Or Have You Ever Used Any Other Forms Of Tobacco Or Nicotine? No Information not available 07/16/2022 How Many Days In The Past Year Have You Consumed 5 Or More Drinks? 0 [email or web address] Information no t available 09/10/2024 Sex: Male Functional Status None recorded. Mental Status None recorded. Family History Relationship Description Onset Age of this Age Resolved Age Notes LastModified by Organization Details LastModified Time Father No current problems or disability [email or web address] Not available 09/10 12:25:00 Mother No current problems or disability [email or web address] Not available 09/10 12:25:00 Medical History Condition Response Sexually Transmitted Infection N Diabetes Y Bleeding Disorder N High Blood Pressure Y Kidney Stones Y Cancer N Depression N Lung Disease N High Cholesterol N GERD/Acid Reflux N Heart Disease N Immunizations Vaccine Type Date Status Note Provider Nam e and Address Organization Details Recorded Time Influenza, adjuvanted, quadrivalent, PF 3 completed Stanley Hernandez MD [address] [place] [address],[address], [place], [address], [facility] 08/28/2023 10:29:24 Pneumococcal conjugate PCV20, polysaccharide [id number] conjugate, adjuvant, PF 3 completed Stanley Hernandez MD [address] [place] [address],[address], [place], [address], [facility] 08/28/2023 10:29:24 COVID-19, mRNA, LNP-S, PF, 50 mcg/0.5 mL 3 completed Stanley Hernandez MD [address] [place] [address],[address], [place], [address], [facility] 08/28/2023 10:29:24 RSV, bivalent, protein subunit RSVpreF, diluent reconstituted, 0.5 mL, PF 3 completed Michelle Tierney null, [facility] 01/29/2024 11:49:27 Influenza, adjuvanted, trivalent, PF 4 completed Sheila Salmeron null, [facility] 12/11/2024 11:08:42 COVID-19, mRNA, LNP-S, PF, 50 mcg/0.5 mL 4 completed Sheila Salmeron null, [facility] 12/11/2024 11:08:42 zoster recombinant 9 completed Romina Sinha null, [facility] 07/03/2023 12:36:03 zoster recombinant 9 completed Romina Sinha null, [facility] 07/03/2023 12:36:03 Influenza, adjuvanted, quadrivalent, PF 2 completed Romina Sinha null, [facility] 07/03/2023 12:36:03 Influenza, adjuvanted, quadrivalent, PF 0 completed Romina Shermanre null, [facility] 07/03/2023 12:36:03 Influenza, adjuvanted, quadrivalent, PF 1 completed Romina Campbellejere null, [facility] 07/03/2023 12:36:03 COVID-19, mRNA, LNP-S, PF, 30 mcg/0.3 mL dose 1 completed Romina Shermanre null, [facility] 07/03/2023 12:36:03 COVID-19, mRNA, LNP-S, PF, 30 mcg/0.3 mL dose 1 completed Romina Campbellejere null, [facility] 07/03/2023 12:36:04 COVID-19, mRNA, LNP-S, PF, 30 mcg/0.3 mL dose 1 completed Romina Shermanre null, [facility] 07/03/2023 12:36:04 pneumococcal polysaccharide PPV23 1 [facility] 12:36:04 Tdap 2 completed Romina Shermanre null, [facility] 07/03/2023 12:36:04 Tdap 2 completed [facility] 07/[facility] 12:36:04 Novel [id number], all formulations 9 completed Romina Sinha null, [facility] 07/03/2023 12:36:04 zoster live 4 completed Romina Campbellejere null, [facility] 07/03/2023 12:36:04 Influenza, split virus, trivalent, preservative 1 completed Romina Shermanre null, [facility] 07/03/[facility] 12:36:04 Influenza, split virus, trivalent, preservative 3 completed Romina Shermanre null, [facility] 07/03/2023 12:36:04 Influenza, split virus, trivalent, preservative 3 [facility] 12:36:04 Influenza, split virus, trivalent, preservative 2 [facility] 07/03/[facility]23 12:36:04 Influenza, split virus, trivalent, preservative 5 [facility] 07/03/2023 12:36:04 Influenza, split virus, trivalent, PF 9 [facility] 07/03/2023 12:36:04 Td (adult), 2 Lf tetanus toxoid, preservative free, adsorbed 3 [facility] 07/03/2023 12:36:04 Influenza, split virus, quadrivalent, PF 9 [facility] 07/03/2023 12:36:04 Influenza, split virus, quadrivalent, PF 4 completed Rominatersea Sinha [facility] 07/03/2023 12:36:04 COVID-19, mRNA, LNP-S, bivalent, PF, 30 mcg/0.3 mL dose 2 completed Rominateresa Sinha [facility] 07/03/2023 12:36:12 Past Encounters Encounter ID Performer Location Encounter Start Date Encounter Closed Date Diagnosis/Indication Diagnosis SNOMED-CT Code Diagnosis ICD10 Code Diagnosis Note [id number] Stanley Hernandez MD [facility] [address] [place] [address] 07/16/2022 15:14:18 07/18/2022 12:32:08 Lower urinary tract symptoms due to benign prostatic hypertrophy 6869239920 9101 N40.1 - Status post TURP and doing well-Okay to stop all BPH medication s-Follow-u p in 6 months with UroCuff prior Prostate s pecific antigen above reference range 767028593 R97.20 - Worked up and noted to be normal. Uric acid renal calculus 314686684 N20.0 - Potassium citrate has been cost prohibitiv e-Citracal has produced diarrhea [id number] MD SASKIA [facility] [address] [place], [place] [address] 01/28/2023 12:27:42 02/05/2023 13:50:45 Lower urinary tract symptoms due to benign prostatic hypertrophy 3488921098 9101 N40.1 - Status post TURP and doing well- PVR today 0 mL- AUASS: 16 (2)-Follow -up in 12 months with Uro[facility] prior Prostate s pecific antigen above reference range 806742184 R97.20 - Worked up and noted to be normal. Uric acid renal calculus 078074266 N20.0 - Potassium citrate has been cost prohibitiv e- Citracal has produced diarrhea- Could try Citralith Blood in urine 37613201 R31.9 - [facility] es with no cancer found [id number] MD SASKIA [facility] [address] [place], [place] [address] 02/13/2023 10:38:59 02/15/2023 15:06:59 Lower urinary tract symptoms due to benign prostatic hypertrophy 9852662826 9101 N40.1 - Status post TURP and doing well- PVR today 0 mL- AUASS: 16 (2)- Follow up in 3 months-Fol low-up in 12 months with UroC[facility] prior Prostate s pecific antigen above reference range 492304876 R97.20 - Worked up and noted to be normal. Uric acid renal calculus 145275048 N20.0 - Potassium citrate has been cost prohibitiv e- Citracal has produced diarrhea- Could try Citralith Blood in urine 68176179 R31.9 - [facility]opi es with no cancer found- We discussed the role of HoLEP or PAE should any recurrence of his hematuria happen despite the finasterid e. [id number] MD SASKIA [facility] [address] [place] [address] 08/28/2023 10:17:02 08/28/2023 15:25:53 Lower urinary tract symptoms due to benign prostatic hypertrophy 1048308903 9101 N40.1 - Status post TURP and doing well- PVR 0 mL- AUASS: 16 (2) --> 3 (1)- Repeat UroCuff Prostate s pecific antigen above reference range 725259686 R97.20 - Worked up and noted to be normal. Uric acid renal calculus 020383992 N20.0 - Potassium citrate has been cost prohibitiv e- Citracal has produced diarrhea- Could try Citralith Blood in urine 69160713 R31.9 - Resolved- Patient has had multiple cystoscopi es with no cancer found- We discussed the role of HoLEP or PAE should any recurrence of his hematuria happen despite the finasterid e. [id number] Stanley Hernandez MD [employer] [place] [address] 01/29/2024 11:33:42 01/31/2024 08:58:08 Lower urinary tract symptoms due to benign prostatic hypertrophy [id number] 9101 N40.1 - Status post TURP and doing well- PVR 0 mL --> 5 mL- AUASS: 16 (2) --> 3 (1) --> 6 (1)- Repeat UroCuff Prostate s pecific antigen above reference range [id number] R97.20 - Worked up and noted to be normal. Uric acid renal calculus [id number] N20.0 - Potassium citrate has been cost prohibitiv e- Citracal has produced diarrhea- Could try Citralith Blood in urine [id number] R31.9 - Resolved- Patient has had multiple cystoscopi es with no cancer found- We discussed the role of HoLEP or PAE should any recurrence of his hematuria happen despite the finasterid e. [id number] MD SASKIA [employer] [address] 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 [id number] MARCEL POPE PA-C [facility] [address] [place] [address] 12/17/2024 14:06:46 12/18/2024 09:44:44 Prostate specific antigen above reference range [id number] R97.20 - PSA today was 26.5 ng/mL- Given patient's hx of PSA elevation, will proceed with MRI prostate to r/o concerning lesions- If any lesions are indicated for biopsy, will likely proceed with prostate biopsy Lower urin ghassan tract symptoms due to benign prostatic hypertrophy [id number] 9101 N40.1 - Status post TURP and doing well- PVR 0 mL --> 5 mL --> 0 mL- AUASS: 16 (2) --> 3 (1) --> 6 (1) --> 7 (1)- Repeat Urocuff down the line Uric acid renal calculus [id number] N20.0 - Potassium citrate has been cost prohibitiv e- Citracal has produced diarrhea- Could try Citralith- Taking allopurino l for gout- Reviewed Sep 2024 CT A/P Wo today which showed a small intrarenal calculus; no indication for treatment at this time Blood in urine [id number] R31.9 - Recurred- Patient has had multiple prior cystoscopi es with no cancer found- We discussed the role of HoLEP or PAE should any recurrence of his hematuria happen despite the finasterid e. Health Concerns Section Related Observation LastModified by Organization [facility] LastModified Time None Recorded Concern Status LastModified by Organization Details LastModified Time None Recorded Advance Directives Directive N: Payers Encounter Date Sequence Insurance Name Policy Number Policy Barr Covered Member ID Barr Member ID Guarantor Name 02/13/2023 1 [employer] [id number] Basilio A Barbara [id number] Basilio A Jimenez 08/28/2023 1 [place] [id number] Basilio A Jimenez [id number] Basilio A Jimenez 01/29/2024 1 [place] [id number] Basilio A Jimenez [id number] Basilio A Jimenez 09/10/2024 1 [place] [id number] Basilio A Jimenez [id number] Basilio A Jimenez 12/17/2024 1 [place] [id number] Basilio A Barbara [id number] Basilio A Jimenez Notes Date Note Type Note Provider Name and Address Organization Details Recorded Time 02/13/2023 text/html Mr. Jimenez is a 67-year-old male who is long followed with me at our [place] office for history of urolithiasis, BPH with lower urinary tract symptoms, and elevated PSA. He is now status post transurethral resection of the prostate and overall doing very well. Reports significantly improved flow and feels as though he is emptying his bladder completely. He did see a slight recurrence in his hematuria but it is since resolved. 01/28/2023:Here for follow-up urolithiasis s/p URS with LL, BPH with lower urinary tract symptoms s/p TURP, and elevated PSA. Today he reports he has been urinating really well but did recently note some return of blood in his urine. He passed some clots which did require a little bit of force to clear but then has seen clear urine ever since. 02/13/2023:Here for follow-up urolithiasis s/p URS with LL, BPH with lower urinary tract symptoms s/p TURP, and elevated PSA. Was admitted to the [facility] after presenting multiple times with hematuria and clot retention. Urine now clear Seen today with his who provides some of the history. Stanley Hernandez MD [address] [place] [address],[address], [place], [address], [facility] 02/13/2023 14:05:37 08/28/2023 text/html Mr. Jimenez is a 68-year-old male who is long followed with me at our [place] office for history of urolithiasis, BPH with lower urinary tract symptoms, and elevated PSA. He is now status post transurethral resection of the prostate and overall doing very well. Reports significantly improved flow and feels as though he is emptying his bladder completely. He did see a slight recurrence in his hematuria but it is since resolved. 01/28/2023:Here for follow-up urolithiasis s/p URS with LL, BPH with lower urinary tract symptoms s/p TURP, and elevated PSA. Today he reports he has been urinating really well but did recently note some return of blood in his urine. He passed some clots which did require a little bit of force to clear but then has seen clear urine ever since. 02/13/2023:Here for follow-up urolithiasis s/p URS with LL, BPH with lower urinary tract symptoms s/p TURP, and elevated PSA. Was admitted to the [facility] after presenting multiple times with hematuria and clot retention. Urine now clear Seen today with his who provides some of the history. 08/28/2023:Here for follow-up urolithiasis s/p URS with LL, BPH with lower urinary tract symptoms s/p TURP, and elevated PSA. Today reports he is doing very well. Stanley Hernandez MD [address] [facility],[address], [place], [address], [facility] 08/28/2023 13:59:33 01/29/2024 text/html Mr. Jimenez is a 68-year-old male who is long followed with me at our [place] office for history of urolithiasis, BPH with lower urinary tract symptoms, and elevated PSA. He is now status post transurethral resection of the prostate and overall doing very well. Reports significantly improved flow and feels as though he is emptying his bladder completely. He did see a slight recurrence in his hematuria but it is since resolved. 01/28/2023:Here for follow-up urolithiasis s/p URS with LL, BPH with lower urinary tract symptoms s/p TURP, and elevated PSA. Today he reports he has been urinating really well but did recently note some return of blood in his urine. He passed some clots which did require a little bit of force to clear but then has seen clear urine ever since. 02/13/2023:Here for follow-up urolithiasis s/p URS with LL, BPH with lower urinary tract symptoms s/p TURP, and elevated PSA. Was admitted to the [facility] after presenting multiple times with hematuria and clot retention. Urine now clear Seen today with his who provides some of the history. 08/28/2023:Here for follow-up urolithiasis s/p URS with LL, BPH with lower urinary tract symptoms s/p TURP, and elevated PSA. Today reports he is doing very well. 01/29/2024:Here for follow-up urolithiasis s/p URS with LL, BPH with lower urinary tract symptoms s/p TURP, and elevated PSA. Continues to do great. Stanley Hernandez MD [address] [place] [address],[address], [address], [facility] 01/29/2024 13:33:01 09/10/2024 text/html Mr. Jimenez is a 69-year-old male who is long followed with me at our [place] office for history of urolithiasis, BPH with lower urinary tract symptoms, and elevated PSA. He is now status post transurethral resection of the prostate and overall doing very well. Reports significantly improved flow and feels as though he is emptying his bladder completely. He did see a slight recurrence in his hematuria but it is since resolved. 01/28/2023:Here for follow-up urolithiasis s/p URS with LL, BPH with lower urinary tract symptoms s/p TURP, and elevated PSA. Today he reports he has been urinating really well but did recently note some return of blood in his urine. He passed some clots which did require a little bit of force to clear but then has seen clear urine ever since. 02/13/2023:Here for follow-up urolithiasis s/p URS with LL, BPH with lower urinary tract symptoms s/p TURP, and elevated PSA. Was admitted to the [facility] after presenting multiple times with hematuria and clot retention. Urine now clear Seen today with his who provides some of the history. 08/28/2023:Here for follow-up urolithiasis s/p URS with LL, BPH with lower urinary tract symptoms s/p TURP, and elevated PSA. Today reports he is doing very well. 01/29/2024:Here for follow-up urolithiasis s/p URS with LL, BPH with lower urinary tract symptoms s/p TURP, and elevated PSA. Continues to do great. 09/10/2024:Here for follow-up urolithiasis s/p URS with LL, BPH with lower urinary tract symptoms s/p TURP, and elevated PSA. Recent PSA noted at 11.69 ng/mL. PSA today 6.5 ng/mL. IPSS 7. PVR 0ml. UA showed +blood, +glucose, +leuks. He denies dysuria but admits to minimal gross hematuria today. He denies any worsening BPH symptoms.He denies any recent kidney stone episodes. Stanley Hernandez MD [address] [place] [address],[address], [place], [address], [facility] 09/10/2024 13:38:24 12/17/2024 text/html 07/16/2022 (Dr. Hernandez):Mr. Jimenez is a 69-year-old male who is long followed with me at our [place] office for history of urolithiasis, BPH with lower urinary tract symptoms, and elevated PSA. He is now status post transurethral resection of the prostate and overall doing very well. Reports significantly improved flow and feels as though he is emptying his bladder completely. He did see a slight recurrence in his hematuria but it is since resolved. 01/28/2023:Here for follow-up urolithiasis s/p URS with LL, BPH with lower urinary tract symptoms s/p TURP, and elevated PSA. Today he reports he has been urinating really well but did recently note some return of blood in his urine. He passed some clots which did require a little bit of force to clear but then has seen clear urine ever since. 02/13/2023:Here for follow-up urolithiasis s/p URS with LL, BPH with lower urinary tract symptoms s/p TURP, and elevated PSA. Was admitted to the [facility] after presenting multiple times with hematuria and clot retention. Urine now clear Seen today with his who provides some of the history. 08/28/2023:Here for follow-up urolithiasis s/p URS with LL, BPH with lower urinary tract symptoms s/p TURP, and elevated PSA. Today reports he is doing very well. 01/29/2024:Here for follow-up urolithiasis s/p URS with LL, BPH with lower urinary tract symptoms s/p TURP, and elevated PSA. Continues to do great. 09/10/2024:Here for follow-up urolithiasis s/p URS with LL, BPH with lower urinary tract symptoms s/p TURP, and elevated PSA. Recent PSA noted at 11.69 ng/mL. PSA today 6.5 ng/mL. IPSS 7. PVR 0ml. UA showed +blood, +glucose, +leuks. He denies dysuria but admits to minimal gross hematuria today. He denies any worsening BPH symptoms.He denies any recent kidney stone episodes. 09/14/2024T A/P WO CON showed a 4mm left intrarenal calculus and prostatomegaly. 12/17/2024 (Marcel):He is accompanied by his today. He notes episodic gross hematuria. 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 He denies a family history of bladder, renal or kidney cancer. He is a former smoker for 25+ years, 2-3 ppd; quit 30 years ago. PSA today 26.5 ng/mL. MARCEL POPE PA-C [address] [place] [address],[address], [place], [address], [facility] 12/17/2024 16:56:27
--- OUTSIDE RECORDS SUMMARY | 2025-01-08 15:21 | XMS_ITS | Clinical Summary ---
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 0 07/17/20 22 Active CPAPIndications: AYSE (obstructive sleep apnea),Obesity, unspecified classification, unspecified obesity [...] months, Frequency of use: Daily 1 Each 12/19/19 24 Active traMADoL (ULTRAM) 50 mg tabletIndication s:Lumbar radiculopathy,DD D (degenerative disc disease), lumbar Take 1 Tablet (50 mg) by mouth 3 times daily if needed for Pain. 24 Tablet 1 04/13/20 24 Active atenoloL (TENORMIN) 25 mg tabletIndication s:Essential hypertension Take 1 Tablet (25 mg) by mouth once daily. 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 180 Tablet 3 07/27/20 24 Active losartan (Cozaar) 100 mg tabletIndication s:Essential hypertension Take 1 Tablet (100 mg) by mouth once daily. 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 90 Tablet 3 07/27/20 24 Active tirzepatide (Mounjaro) 2.5 mg/0.5 mL penIndications:T ype 2 diabetes mellitus with both eyes affected by retinopathy without macular edema, without long-term current use of insulin, unspecified retinopathy severity (HC) Inject 2.5 mg subcutaneous once weekly. 2 mL 07/27/20 24 Active tirzepatide (Mounjaro) 5 mg/0.5 mL penIndications:T ype 2 diabetes mellitus with both eyes affected by retinopathy without macular edema, without long-term current use of insulin, unspecified retinopathy severity (HC) Inject 5 mg subcutaneous once weekly. 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 1 Each 12/01/19 25 Active allopurinoL 300 mg tabletIndication s:Acute idiopathic gout of left elbow Take 1 Tablet (300 mg) by mouth once daily. 90 Tablet 1 01/09/20 25 Active chlorthalidone 50 mg tabletIndication s:Essential hypertension Take 1 Tablet (50 mg) by mouth once daily. 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 60 Tablet 01/09/20 25 Active allopurinoL (ZYLOPRIM) 300 mg tabletIndication s:Acute idiopathic gout of left elbow Take 1 Tablet (300 mg) by mouth once daily. 90 Tablet 3 07/27/20 24 025 Discontin ued(*Avai lability/ Formulary change/Co st of medicatio n) chlorthalidone (HYGROTON) 50 mg tabletIndication s:Essential hypertension Take 1 Tablet (50 mg) by mouth once daily. 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 180 Tablet 3 07/27/20 24 025 Discontin ued(*Avai lability/ Formulary change/Co st of medicatio n) Active Problems Problem Noted Date Diagnosed Date Status post cystoscopy 05/29/2022 S/P TURP (status post transurethral resection of prostate) 05/29/2022 Anemia 05/29/2022 Stage 3a chronic kidney disease 05/29/2022 Adenomatous colon polyp 08/26/2019 Overview (08/16/2023): Colonoscopy 08/2019 multiple polyps, repeat in 3 years Colonoscopy 08/2023 TA, SSA, repeat in 5 years Elevated PSA 03/27/2017 Benign prostatic hyperplasia with lower urinary tract symptoms 03/08/2016 AYSE 05/18/2013 AHI-18 06/04/2013 Essential hypertension 10/25/2009 Type 2 diabetes mellitus wit h both eyes affected by retinopathy without macular edema, without long-term current use of insulin 06/21/2004 Overview (03/05/2019): Dx at 36 yo Retinopathy noted at [...] long-term current use of insulin 06/21/2004 03/05/2019 Overview (08/16/2013): Diagnosed at 36 yo Retinopathy noted on 08/12/13 eye exam Encounters Date Type Department Care Team Description 01/08/2025 Nurse Triage [address] [phone] Santos Rowe MD Urinary Problem 01/06/2025 Refill [facility] [address] [place] [address] Santos Rowe MD Refill Request (Allopurinol, Chlorthalidone, Metformin) 01/04/[address] [phone] Santos Rowe MD DME Supply 11/30/[address] [phone] Santos Rowe MD from Last 3 Months Immunizations Immunization Administration Dates Next Due COVID-19 VACCINE SPIKEVAX (M ODERNA 50MCG/0.5ML) 12YO+ PFS 07/27/2024,07/26/2023 COVID-19 vaccine (Pfizer-Bio NTech 30mcg/0.3mL) 12YO+ BIVALENT PF, MDV 07/17/2022 COVID-19 vaccine (Pfizer-Bio NTech 30mcg/0.3mL) PF, MDV 07/13/2021,12/15/2020,11/13/2020 Influenza A (H1N1), Inactiva raz (Age >=3 Years) 09/07/2009 Influenza, IIV3 (Age >=3 years) 06/04/20 13,08/18/2012,05/28/2011,09/07,08/20/2005,07/22/2003 Influenza, IIV4 06/12/2019,08/27/2014 Influenza, Inactivated AIIV4 (Age 65+ Years) Preserv Free 07/26/2023,05/10/2022,07/13/2021,07/07 Influenza, Inactivated IIV3 (Age 65+ Years) Preserv Free 07/27/2024 Pneumococcal Conj 20-valent (Prevnar 20) 07/26/2023 Pneumococcal Poly,23-Valent (Pneumovax) 08/31/2021 RSV, Bivalent Vaccine Recons tituted (Abrysvo 120MCG/0.5mL) 08/27/2023 Td (Age >=7 Years) 04/15/2003 Tdap 05/10/2022,08/18/2012 [...] Answer Date Recorded PHQ-2 TOTAL SCORE 0 07/27/2024 Social Connections Answer Date Recorded Do you often feel lonely or isolated from those around you? 0 05/07/2024 Financial Resource Strain Answer Date R ecorded Difficulty of Paying Living Expenses 3 01/10/2024 Difficulty of Paying Living Expenses Not on file 01/10/2024 Food Insecurity Answer Date Recorded Do you worry your food will run out before you are able to buy more? 1 05/07/2024 Transportation Needs Answer Date Record ed Does lack of transportation keep you from medica l appointments? 1 05/07/2024 Does lack of transportation keep you from work, meetings or getting things that you need? 1 05/07/2024 Housing Stability Answer Date Recorded What is your housing situation today? 1 05/07/2024 Utilities Answer Date Recorded Do you have trouble paying f or utilities (for example, heat, electricity, water, phone)? 1 05/07/2024 Sex and Gender Information Value Date Recorded Sex Assigned at Not on file Legal Sex Male 5:44 AM PROCESS SAFETY ENGINEER Gender Identity Not on file Sexual Orientation Not on file Obstetrics History Last Filed Vital Signs Vital Sign Reading Time Taken Comments Blood Pressure 131/60 08/11/2024 8:10 AM PROCESS SAFETY ENGINEER Pulse 74 08/11/2024 8:10 AM PROCESS SAFETY ENGINEER Temperature 36.8 C (98.2 F) 01/21/2024 12:40 PM CDT Respiratory Rate 18 02/17/2024 9:39 AM CDT Oxygen Saturation 94% 08/11/2024 8:10 AM PROCESS SAFETY ENGINEER Inhaled Oxygen Concentration - - Weight 142 kg (313 lb) 07/27/2024 10:50 AM PROCESS SAFETY ENGINEER Height 185.4 cm (6' 1) 07/27/2024 10:50 AM PROCESS SAFETY ENGINEER Body Mass Index 41.3 07/27/2024 10:50 AM PROCESS SAFETY ENGINEER Plan of Treatment Upcoming Encounters Date Type Department Care Team (Late st Contact Info) Description 01/27/2025 10:40 AM CDT Office Visit [address] [place] [phone] Santos Rowe MD [address] [facility] [place] [address] 05/03/2025 8:30 AM CDT Office Visit [facility] [address] [place] [address] Artemio Vivas MD [address] [place] [address] Health Maintenance Due Date Last Done Comments AAA screening age 65-74 2020 COVID-19 vaccine series (2023- season) 2025 07/27/2024, 07/26/2023, 07/17/2022, Additional history exists BMI (ht and wt on same day) for age 18+ 07/27/2025 07/27/2024, 10/08/2023, 07/26/2023, Additional history exists Medicare Wellness for age 65+ 07/28/2025 07/27/2024, 07/26/2023 Depression screening for age 12+ 07/29/2025 07/29/2024, 07/27/2024, 07/26/2023, Additional history exists Colonoscopy through age 75 08/13/202808/13, 08/13/2023, 08/13/2023, Additional history exists Lipids for age 45-75 07/27/2029 07/27/2024, 07/26/2023, 07/17/2022, Additional history exists Tetanus booster 05/10/2032 05/10/2022, 08/09, 08/18/2012, Additional history exists Zoster (shingles) series for age 50+ Completed 06/12/2019, 03/05/2019, 08/27/2014 Hepatitis C screening for ag e 18-79 Completed 09/14/2020 Tdap Completed 05/10/2022, 08/18/2012 Pneumococcal series for age 50+ Completed , 08/31/2021 RSV vaccine for adults or Completed 08/27/2023 Influenza Vaccine Completed 07/27/2024, , 05/10/2022, Additional history exists Medical Devices Implanted Type Area Rcis Device Identifier Shelf Expiration Date Model / Serial / Lot Stent Uret [id number] Contour - [id number] Implanted:Qty: 1 on 10/11/2020 by Stanley Hernandez MD at [facility] Left: Ureter [facility] 06/10/2023 [id number] / / [id number] Stent Uret [id number] Percuflex Hydroplus - [id number] Implanted:Qty: 1 on 10/28/2020 by Stanley Hernandez MD at [facility] Left: Ureter [facility] 05/03/2023 [id number] / / [id number] Description:6Fx 26cm [employer] scientific Percuflex Plus Dr Hernandez 10/28/20. 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, without long-term current use of insulin, unspecified retinopathy severity (HC) COLONOSCOPY SCREENING Routine 08/13/2023 12:34 PM PROCESS SAFETY ENGINEER History of colon polyps ANTI HCV Routine 09/14/2020 2:48 PM PROCESS SAFETY ENGINEER Controlled type 2 diabetes mellitus without complication, without long-term current use of insulin (HC) from Last 3 Months or Most Recently Relevant to Health Maintenance Results * (ABNORMAL) LIPID PANEL W REFLEX MEASURED LDL (07/27/2024 12:04 PM PROCESS SAFETY ENGINEER) CHOLESTEROL, TOTAL 162 <200 mg/dL [facility] HDL CHOLESTEROL 29(L) > OR = 40 mg/dL [facility] TRIGLYCERIDES 113 <150 mg/dL [facility] LDL-CHOLESTEROL 111(H) mg/dL (calc) [facility] Comment: Reference range: <100 Desirable range <100 mg/dL for primary prevention; <70 mg/dL for patients with CHD or diabetic patients with > or = 2 CHD risk factors. LDL-C is now calculated using the Axel-Aristides calculation, which is a validated novel method providing better accuracy than the Friedewald equation in the estimation of LDL-C. Axel SS et al. TREE. 2013;310(19): 7136-3220 (http://education.[employer]ley's Extra/faq/GQH149) CHOL/HDLC RATIO 5.6(H) <5.0 (calc) [facility] NON HDL CHOLESTEROL 133(H) <130 mg/dL (calc) [facility] Comment: For patients with diabetes plus 1 major ASCVD risk factor, treating to a non-HDL-C goal of <100 mg/dL (LDL-C of <70 mg/dL) is considered a therapeutic option. Blood BLOOD SPECIMEN / Unknown 07/27/2024 12:04 PM PROCESS SAFETY ENGINEER 07/27/2024 12:06 PM PROCESS SAFETY ENGINEER Narrative [facility] - 07/28/2024 4:58 AM PROCESS SAFETY ENGINEER FASTING:YES FASTING: YES us Santos Rowe MD CHEMISTRY Final R esult [facility] [address] [place] [address], [facility] [address] [place] [address] * COLONOSCOPY (08/13/2023 11:42 AM PROCESS SAFETY ENGINEER) 08/13/2023 11:4 2 AM PROCESS SAFETY ENGINEER Narrative Transcriptions Axel Tipton MD - 08/13/2023 [...] adequate candidate for conscious sedation. The endoscope [id number] was passed through the anus andadvanced to [...] 11:42 AM Procedure Code(s): --- Professional --- 73338, Colonoscopy, flexible; with removalof tumor(s), polyp(s), or other lesion(s) bysnare technique Diagnosis Code(s): --- Professional --- D12.2, Benign neoplasm of ascending colon D12.8, Benign neoplasm of rectum Z86.010, Personal history of colonicpolyps CPT copyright 2021 [employer]. All rights reserved. The codes documented in this report are preliminary and upon cigar making machine supervisor reviewmay be revised to meet current compliance requirements. Scope In: 1:58:15 PM Scope Withdrawal Time 0 hours 18 minutes 35 seconds Scope Out: 2:22:12 PM us Axel Tipton MD PROCEDURE ORD Final Res ult * ANTI HCV (09/14/2020 2:48 PM PROCESS SAFETY ENGINEER) HEPATITIS C ANTIBODY Non-React dimitry Non-React dimitry 09/14/2020 7:35 PM PROCESS SAFETY ENGINEER [facility] Comment:Antibodies to HCV no t detected; does not exclude the possibility of exposure to HCV. Blood BLOOD SPECIMEN / Unknown Venipuncture / Unknown 09/14/2020 2:48 PM PROCESS SAFETY ENGINEER 09/14/2020 3:38 PM PROCESS SAFETY ENGINEER us Pedrito Hale MD SEND OUTS Final Re sult [facility] [address] [place] [address], [place] from Last 3 Months or Most Recently Relevant to Health Maintenance Insurance MEDICARE PART B HB ONLY MEDICARE PART A HB ONLY [employer] [place] BL[place] MR PB ONLY [place] HB ONLY * Guarantor: TRUDY YOUNG Account Type Relation to Patient Date of Phone Billing Address [facility] Employer [id number] [place] [id number] Advance Directives * Full Code (Latest Code [...] Code Status Discussion: Not Discussed Care Teams Grinding Machine Operator Automatic Relationship Specialty Start Date End Date Santos Rowe MD [address] [facility] [place] [address] PCP - General Family Practice 12/19/23 Santos Rowe MD [address] [facility] [place] [address] Family Practice 12/19/23
--- OUTSIDE RECORDS SUMMARY | 2025-01-08 15:21 | XMS_ITS | Continuity of Care Document ---
Author Organization [facility], [facility] Address [address] [place] [address] Assessment Encounter Date Assessment Date Assessment LastModified by Organization Details LastModified Time 12/17/2024 12/17/2024 69-year-old male with history of nephrolithias is, elevated PSA, and BPH with lower urinary tract symptoms status post TURP [email or web address] Not available 12/17/2024 14:35:36 Plan of Treatment Reminders Order Date Submit Date Provider Last Modified By Organization Details Last Modified Time Details Appointments URONAV 30 2024 01:30P M [facility] M Not available Not available Not available URON[facility] 2024 01:30P M SAÚL NOLASCO MD Not available Not available Not available Lab PSA, serum or plasma 2024 025 [email or web address] [facility], [address], [place], [address], 12/17/2024 14:49:08 urinalysi s, dipstick 2024 025 [email or web address] [facility], [address], [place], [address], 12/17/2024 14:49:08 Referral None recorded. Procedures None recorded. Surgeries None recorded. Imaging MRI, prostate, w/wo contrast 2024 025 [facility], [address], [address], [place], [address], 12/17/2024 15:04:40 Medication Orders None recorded. Patient TargetsNo targets recorded. Patient InstructionsNo instructions recorded. Reason for Referral None Reported. Results Created Date Observation Date Name Description Value Unit Range Abnormal Flag Note LastModifiedBy Organization Detail LastModifiedTime 12/18/19 25 12/17/2024 PSA, serum or plasm a PSA 26.5 ng/ml 0-4.0 NG/mL Not Available [facility] [address], [place], [address], 12/17/2024 14:23:48 12/18/19 25 12/17/2024 urina lysis , dipst ick BLOOD Negati ve Not Available [facility] [address], [place], [address], 12/17/2024 14:22:34 12/18/19 25 12/17/2024 urina lysis , dipst ick BILIRUBIN Small (0.5 mg/dL) Not Available [facility] [address], [place], [address], 12/17/2024 14:22:34 12/18/19 25 12/17/2024 urina lysis , dipst ick UROBILINOGEN 0.2 mg/dL (Norm) Not Available [facility] [address], [place], [address], 12/17/2024 14:22:34 12/18/19 25 12/17/2024 urina lysis , dipst ick KETONES Negati ve Not Available [facility] [address], [place], [address], 12/17/2024 14:22:34 12/18/19 25 12/17/2024 urina lysis , dipst ick PROTEIN Trace (10 mg/dL) Not Available [facility] [address], [place], [address], 12/17/2024 14:22:34 12/18/19 25 12/17/2024 urina lysis , dipst ick NITRITES Negati ve Not Available [facility] [address], [place], [address], 12/17/2024 14:22:34 12/18/19 25 12/17/2024 urina lysis , dipst ick GLUCOSE Negati ve Not Available [facility] [address], [place], [address], 12/17/2024 14:22:34 12/18/19 25 12/17/2024 urina lysis , dipst ick p.H. 5.0 Not Available [facility] [address], [place], [address], 12/17/2024 14:22:34 12/18/19 25 12/17/2024 urina lysis , dipst ick S.G. (Specific [place]) 1.025 Not Available [facility] [address], [place], [address], 12/17/2024 14:22:34 12/18/19 25 12/17/2024 urina lysis , dipst ick LEUKOCYTES Negati ve Not Available [facility] [address], [place], [address], 12/17/2024 14:22:34 01/02/20 25 12/31/2024 MRI, prost ate, w/wo contr ast No observ ation record ed. [email or web address] [facility] [address], [place], [address], 01/07/2025 14:56:09 Result Notes None recorded. Problems Name Problem SNOMED Code Status Onset Date Resolution Date Notes Provider Name and Address Organization Details Recorded Time Prostate specific antigen above reference range 529599228 Active 2012 790.93 : ELEVATED PSA MARCEL POPE PA-C [address], [address], [facility] 5 14:47:57 Lower urinary tract symptoms due to benign prostatic hypertrop hy 128893167437 01 Active 2024 MARCEL POPE PA-C [address] [facility],[address], [place], [address], [facility] 5 14:35:38 Uric acid renal calculus 050759012 Active 2024 MARCEL POPE PA-C [address] [place] [address],[address], [place], [address], [facility] 5 14:35:38 Blood in urine 64389134 Active 2024 MARCEL POPE PA-C [address] [place] [address],[address], [place], [address], [facility] 14:35:39 Problem Notes None recorded. Procedures Surgical History Date Name Laterality Status Provider Name and Address Organization Details Recorded Time 09/10/19 25 COMPLEX VISIT completed Stanley Hernandez MD [address] [place] [address],[address], [place], [address], [facility] 09/10/2024 08:30:03 09/10/19 25 Bladder Scan completed eMly Dominguez [facility] 09/10/2024 12:25:16 09/10/19 25 Blood Draw/VISUAL MERCHANDISING SPECIALIST/PSA RESULTS completed Michelle Vargas [facility] 08/31/2024 15:02:42 01/29/20 24 COMPLEX VISIT completed Stanley Hernandez MD [address] [place] [address],[address], [place], [address], [facility] 01/29/2024 09:13:49 01/29/20 24 Bladder Scan completed Michelle Tierney [facility] 01/29/2024 11:53:43 08/28/20 23 Bladder Scan completed [facility] 08/28/2023 10:43:52 07/21/20 23 colonoscopy completed Stanley Hernandez MD [address] [place] [address],[address], [place], [address], [facility] 08/28/2023 10:33:21 01/29/20 Bladder Scan completed Stanley Hernandez MD [address] [facility],[address], [place], [address], [facility] 01/28/2023 12:37:23 07/16/20 Flow Rate / Uroflow completed Pa Rhodes [facility] 07/16/2022 15:49:34 07/16/20 Bladder Scan completed Pa Rhodes [facility] 07/16/2022 15:48:19 05/29/20 CYSTOURETHROSCO PY, WITH IRRIGATION AND EVACUATION OF CLOTS (SURG) completed Stanley Hernandez MD [address] [facility],[address], [place], [address], [facility] 07/16/2022 16:19:28 Imaging Results None recorded. Procedure [...] Updated DateTime 12/17/2024 182.88 cm 39.3 kg/m2 937028.79 g Maureen Narayanan [facility] 12/17/2024 14:21:15 Social History Question Answer Notes LastModified by Organizat ion Details LastModified Time Tobacco Smoking Status Former Smoker Pa hunter [facility] 07/16/2022 15:40:06 Do You Have An Advance Directive? No [email or web address] Information not available 09/10/2024 What Is Your [...] Do You Have A Medical Power Of Administrator Pesticide? No [email or web address] Information not available 09/10/2024 What Was The Date Of Your Most Recent Tobacco Screening? 12/17/2024 [email or web address] Information not available 12/17/2024 Have You Ever Been Counseled For Unhealthy Alcohol Use? No [email or web address] Information not available 09/10/2024 What Is Your Relationship Status? Information not available 07/16/2022 How Much Tobacco Do You Smoke? 1 PPW [email or web address] Information not available 09/10/2024 Do You Use [...] You Consumed 5 Or More Drinks? 0 [email or web address] Information no t available 09/10/2024 Sex: Male Functional Status None recorded. Mental Status None recorded. Family History Relationship Description Onset Age of this Age Resolved Age Notes LastModified by Organization Details LastModified Time Father No current problems or disability [email or web address] Not available 09/10 12:25:00 Mother No current problems or disability [email or web address] Not available 09/10 12:25:00 Medical History Condition Response High Blood Pressure Y Kidney Stones Y Depression N Lung Disease N GERD/Acid Reflux N Diabetes Y Sexually Transmitted Infection N Bleeding Disorder N Cancer N High Cholesterol N Heart Disease N Immunizations Vaccine Type Date Status Note Provider Nam e and Address Organization Details Recorded Time Influenza, adjuvanted, quadrivalent, PF 11/17/202 3 completed Stanley Hernandez MD [address] [facility],[address], [place], [address], [facility] 08/28/2023 10:29:24 Pneumococcal conjugate PCV20, polysaccharide [id number] conjugate, adjuvant, PF 3 completed Stanley Hernandez MD [address] [facility],[address], [place], [address], [facility] 08/28/2023 10:29:24 COVID-19, mRNA, LNP-S, PF, 50 mcg/0.5 mL 3 completed Stanley Hernandez MD [address] [place] [address],[address], [place], [address], [facility] 08/28/2023 10:29:24 RSV, bivalent, protein subunit RSVpreF, diluent reconstituted, 0.5 mL, PF 3 completed Michelle Tierney null, [facility] 01/29/2024 11:49:27 Influenza, adjuvanted, trivalent, PF 4 completed Sheila Salmeron null, [facility] 12/11/2024 11:08:42 COVID-19, mRNA, LNP-S, PF, 50 mcg/0.5 mL 4 completed Sheila Salmeron null, [facility] 12/11/2024 11:08:42 zoster recombinant 9 completed Romina Sinha null, [facility] 07/03/2023 12:36:03 zoster recombinant 9 completed Romina Sinha null, [facility] 07/03/2023 12:36:03 Influenza, adjuvanted, quadrivalent, PF 2 completed Romina Sinha null, [facility] 07/03/2023 12:36:03 Influenza, adjuvanted, quadrivalent, PF 0 completed Romina Sinha null, [facility] 07/03/2023 12:36:03 Influenza, adjuvanted, quadrivalent, PF 1 completed Romina Sinha null, [facility] 07/03/2023 12:36:03 COVID-19, mRNA, LNP-S, PF, 30 mcg/0.3 mL dose 1 completed Romina Almejere null, [facility] 07/03/2023 12:36:03 COVID-19, mRNA, LNP-S, PF, 30 mcg/0.3 mL dose 1 completed Romina Almejere null, [facility] 07/03/2023 12:36:04 COVID-19, mRNA, LNP-S, PF, 30 mcg/0.3 mL dose 1 completed Romina Almejere null, [facility] 07/03/2023 12:36:04 pneumococcal polysaccharide PPV23 1 completed Romina Almejere null, [facility] 07/03/2023 12:36:04 Tdap 2 completed Romina Almejere null, [facility] 07/03/2023 12:36:04 Tdap 2 completed Romina Almejere null, [facility] 07/03/2023 12:36:04 Novel Snsalqmli-[id number], all formulations 9 completed Romina Almejere null, [facility] 07/03/2023 12:36:04 zoster live 4 completed Romina Almejere null, [facility] 07/03/2023 12:36:04 Influenza, split virus, trivalent, preservative 1 completed Romina Almejere null, [facility] 07/03/2023 12:36:04 Influenza, split virus, trivalent, preservative 3 completed Romina Almejere null, [facility] 07/03/2023 12:36:04 Influenza, split virus, trivalent, preservative 3 completed Romina Almejere null, [facility] 07/03/2023 12:36:04 Influenza, split virus, trivalent, preservative 2 completed Romina Almejere null, [facility] 07/03/2023 12:36:04 Influenza, split virus, trivalent, preservative 5 completed Romina hunter, [facility] 07/03/2023 12:36:04 Influenza, split virus, trivalent, PF [facility] 12:36:04 Td (adult), 2 Lf tetanus toxoid, preservative free, adsorbed 3 completed Romina hunter, [facility] 07/03/2023 12:36:04 Influenza, split virus, quadrivalent, PF 9 completed Romina Sinha [facility] 07/03/2023 12:36:04 Influenza, split virus, quadrivalent, PF 4 completed Romina Sinha [facility] 07/03/2023 12:36:04 COVID-19, mRNA, LNP-S, bivalent, PF, 30 mcg/0.3 mL dose 2 completed Romina Almmikey [facility] 07/03/2023 12:36:12 Past Encounters Encounter ID Performer Location Encounter Start Date Encounter Closed Date Diagnosis/Indication Diagnosis SNOMED-CT Code Diagnosis ICD10 Code Diagnosis Note [id number] MARCEL POPE PA-C [facility] [address] [place], [place] [address] 12/17/2024 14:06:46 12/18/2024 09:44:44 Prostate specific antigen above reference range 618228012 R97.20 - PSA today was 26.5 ng/mL- Given patient's hx of PSA elevation, will proceed with MRI prostate to r/o concerning lesions- If any lesions are indicated for biopsy, will likely proceed with prostate biopsy Lower urin ghassan tract symptoms due to benign prostatic hypertrophy 8055203035 9101 N40.1 - Status post TURP and doing well- PVR 0 mL --> 5 mL --> 0 mL- AUASS: 16 (2) --> 3 (1) --> 6 (1) --> 7 (1)- Repeat [place] down the line Uric acid renal calculus 496793949 N20.0 - Potassium citrate has been cost prohibitiv e- Citracal has produced diarrhea- Could try Citralith- Taking allopurino l for gout- Reviewed Sep 2024 CT A/P Wo today which showed a small intrarenal calculus; no indication for treatment at this time Blood in urine 11130120 R31.9 - Recurred- Patient has had multiple [...] Member ID Barr Member ID Guarantor Name 12/17/2024 1 [employer] - MEDICARE COST [id number] Basilio Jimenez [id number] Basilio Jimenez Notes Date Note Type Note Provider Name and Address Organization Details Recorded Time 12/17/2024 text/html 07/16/2022 (Dr. Hernandez):Mr. Jimenez is a 69-year-old male who is long followed with me at our [place] office for history of urolithiasis, BPH with [...] and elevated PSA. Was admitted to the [facility] after presenting multiple times with hematuria [...] PSA today 26.5 ng/mL. MARCEL POPE PA-C [address] [facility],[address], [place], [address], [facility] 12/17/2024 16:56:27
[2025-01-08 15:37] VITALS: BP 133/71; PULSE 58; RESP 18; TEMP 36.3; O2SAT 97; BMI 38.8
--- NOTE | 2025-01-08 15:53 | ED_ITS ---
HPI - Male Genitourinary General Time Seen by Provider: 15:53 Date Seen: 01/08/25 Chief complaint: Urogenital Problems, Male Stated complaint: Cant Urinate, blood in urine Time Seen by Provider: 01/08/25 15:52 Source: patient, RN notes reviewed and old records reviewed Mode of arrival: ambulatory Limitations: no limitations History of Present Illness HPI Narrative: This 69-year-old male is coming in with urinary frequency of small volumes. He states he is ?going a shot glass at a time? and urine is bloody. He notes that he was hospitalize here few years ago for 3 days with bladder irrigation. He is not on blood thinners but has had problems with hematuria. He had an MRI on , his PSA has gone up and he is scheduled for prostate biopsy through [facility] on January 29. He did have a TURP several years ago. He does not noted any fevers or chills, no abdominal pain but has been feeling a little growing pain and penile pain. (follow-up conversation with patient reveals that his MRI was last week and was with IV contrast) Related Data Home Medications ?Medication ?Instructions ?Recorded ?Confirmed atenolol 25 mg tablet 25 mg PO QDAY 07/06/22 01/08/25 pioglitazone 15 mg tablet (Actos) 15 mg PO HS 07/06/22 02/07/23 allopurinol 300 mg tablet 300 mg PO HS 07/31/22 01/08/25 aspirin 81 mg tablet,delayed 81 mg PO DAILY 02/07/23 01/08/25 release (Adult Aspirin Regimen) chlorthalidone 50 mg tablet 50 mg PO DAILY 02/07/23 01/08/25 fluticasone propionate 50 1 spray intranasal HS 02/07/23 01/08/25 mcg/actuation nasal spray,suspension (24 Hour Allergy Relief) glimepiride 4 mg tablet 8 mg PO DAILY 02/07/23 01/08/25 losartan 100 mg tablet 100 mg PO DAILY 02/07/23 01/08/25 metformin 1,000 mg tablet 1,000 mg PO BIDWM 02/07/23 01/08/25 potassium chloride 10 mEq 20 meq PO HS 02/07/23 01/08/25 tablet,extended release (Klor-Con) Allergies Allergy/AdvReac Type Severity Reaction Status Date / Time No Known Drug Allergies Allergy Verified 01/08/25 15:34 [facility] Medical History Right Achilles tendinitis ?M76.61 - Achilles tendinitis, right leg (ICD-10) Calcaneal spur of right foot ?M77.31 - Calcaneal spur, right foot (ICD-10) Lateral epicondylitis, left elbow ?M77.12 - Lateral epicondylitis, left elbow (ICD-10) Acute gout of left elbow ?M10.9 - Gout, unspecified (ICD-10) Hypertension ?I10 - Essential (primary) hypertension (ICD-10) Type 2 diabetes mellitus ?E11.9 - Type 2 diabetes mellitus without complications (ICD-10) Surgical History H/O shoulder surgery ?Z98.890 - Other specified postprocedural states (ICD-10) History of prostate surgery ?Z98.890 - Other specified postprocedural states (ICD-10) Social History Highest level of school completed/degree received: high school graduate Smoking Status: Former smoker Do you use any of these nicotine containing products: None Second hand tobacco smoke exposure: No How often do you have a drink containing alcohol: never AUDIT-C Alcohol total score: 0 Non-prescribed substance use: denies use Caffeine: Yes (1 pop) service: No Exam Const: Vital Signs, click to edit/add: Vital Signs - 24 hr 01/08/25 15:37 01/08/25 17:27 Temperature 97.3 F L 98.5 F Pulse Rate [Pulse Oximeter] 58 L 68 Respiratory Rate 18 16 Blood Pressure [Ri ght Upper Arm] 133/71 130/73 Pulse Oximetry 97 98 Oxygen Delivery Me thod Room Air Room Air Course Course ED Course: Will get some basic labs on patient, make sure urinalysis, kidney function, he moglobin and white blood count are stable. Will look at bladder scan. If there is significant retention on bladder scan, may need to consider Baez catheter or irrigation if there is significant hematuria. Await urinalysis. Reevaluation(s) Time of Reevaluation #1: 16:58 Reevaluation #1: Patient had limited volume on the bladder scan (36ml). He felt better after urinating, did urinate dark urine maybe about 100 mL. He has not noted any active blood clots for about a couple weeks. Reviewed with him there are some red cells but not extensive on his urinalysis, definitely has some white cells and some bacteria. Do wonder if he perhaps is actually having a urinary tract infection. We discussed the irritative bladder symptoms that can happen with urinary tract infection. We are going to give him a dose of Rocephin, start oral antibiotics tomorrow, discharge to home for ongoing monitoring. He really does not want to put a Baez catheter in if he is not having significant hematuria, there is no evidence of blood clots at this time. I agree with trial of treatment for urinary tract infection and ongoing monitoring of urinary obstructive symptoms. He has no evidence of significant urinary retention here. Time of Reevaluation #2: 17:42 Reevaluation #2: Patient is getting 500 mL normal saline, is getting the Rocephin. Looking at his creatinine which is now back at 2.5, we have reviewed that he has some acute kidney injury. He is on many medicines for his diabetes as well as medications for his hypertension which require renal dosing or withholding. His blood sugar right now is 110, has a monitor on. Did review with him with his creatinine at this level, would recommend IV fluids, we will also get a CT noncontrast to see if there are any new changes. His MRI was through [facility] which I do not have access to. He does not remember his past word to pull it up on his my chart. Looking closer at his urinalysis, there are granular casts. It is possible that this may not be UTI, could be renal issues. I have briefly spoken with our hospitalist Dr. Carreno. She will look at his history further, await CT. Time of Reevaluation #3: 19:33 Reevaluation #3: Have spoken with our hospitalist cecil Richmond and his . Our hospitalist does feel that he can discharge to home, drink orals. She feels that his kidney function is probably going to take more than 1 night of IV hydration to improve. She has kindly helped with medication recommendations which I will share with the patient. Will give 1 more L IV fluids here. His understands that he should not drink just free water, though do combination of other fluid CN include potentially some Gatorade in there so that he does not reduce his electrolytes like his sodium. Vital Signs Vital signs: Initial Vital Signs Temperature 97.3 F L 01/08/25 15:37 Temperature Source Temporal Artery Scan 01/08/25 15:37 Pulse Rate 58 L 01/08/25 15:37 Respiratory Rate 18 01/08/25 15:37 Blood Pressure 133/71 01/08/25 15:37 Blood Pressure Mean 91 01/08/25 15:37 Pulse Oximetry 97 01/08/25 15:37 Oxygen Delivery Method Room Air 01/08/25 15:37 Vital Signs Temperature 97.3 F L 01/08/25 15:37 Pulse Rate 58 L 01/08/25 15:37 Respiratory Rate 18 01/08/25 15:37 Blood Pressure 133/71 01/08/25 15:37 Pulse Oximetry 97 01/08/25 15:37 Oxygen Delivery Method Room Air 01/08/25 15:37 Temperature 98.5 F 01/08/25 17:27 Pulse Rate 68 01/08/25 17:27 Respiratory Rate 16 01/08/25 17:27 Blood Pressure 130/73 01/08/25 17:27 Pulse Oximetry 98 01/08/25 17:27 Oxygen Delivery Method Room Air 01/08/25 17:27 Medications Administered Medications: Discontinued Medications Generic Name Dose Route Start Last Admin Trade Name Freq PRN Reason Stop Dose Admin Sodium Chloride 500 mls @ 500 mls/hr 01/08/25 16:58 01/08/25 18:13 0.9 % Sodium Chloride 500 Ml IV 01/08/25 17:57 Infused .Q1H ONE Infusion Ceftriaxone Sodium 2 gm/ 100 mls @ 200 mls/hr 01/08/25 16:58 01/08/25 18:13 Sodium Chloride IVPB 01/08/25 16:59 Infused ONCE ONE Infusion MDM - Male Genitourinary Lab Data Attestation: I reviewed the patient's lab results. Lab results narrative: Creatinine was 1.26 on 07/27/2024 in [facility]. Labs: Lab Results 01/08/25 01/08/25 Range/Units 16:29 16:32 WBC 10.89 (4.50-11.00) K/uL RBC 3.66 L (4.30-5.90) m/uL Hgb 11.8 L (13.5-17.5) gm/dL Hct 35.9 L (37.0-53.0) % MCV 98 (80-100) fL MCH 32 (26-34) pg MCHC 33 (32-36) gm/dL RDW Coeff of Jane 13.7 (11.5-15.5) % Plt Count 215 (140-440) K/uL Neut % (Auto) 73.1 H (42.0-72.0) % Lymph % (Auto) 13.1 L (20-44) % Person % (Auto) 11.5 H (0.0-11.0) % Eos % (Auto) 0.9 (0.0-7.0) % Baso % (Auto) 0.2 (0.0-3.0) % Neut # (Auto) 8.00 H (1.7-7.0) K/uL Lymph # (Auto) 1.40 (0.90-2.90) K/uL Person # (Auto) 1.30 H (0.00-0.90) K/UL Eos # (Auto) 0.10 (0.00-0.50) K/uL Baso # (Auto) 0.02 (0.00-0.30) K/uL Abs Immat Gran (auto) 0.13 (0.00-0.30) K/uL Imm/Tot Granulo (auto) 1.2 % INR 1.03 (0.91-1.10) APTT 32 (23-33) Seconds Sodium 141 (135-149) mmol/L Potassium 4.6 (3.6-5.1) mmol/L Chloride 107 (96-114) mmol/L Carbon Dioxide 19 L (20-32) mmol/L Anion Gap 15 (7-15) mEq/L BUN 74 H (7-30) mg/dL Creatinine 2.5 H (0.5-1.5) mg/dL Estimated Creat Clear 31.52 Estimated GFR 27 ml/min Glucose 157 H (60-115) mg/dL Calcium 9.4 (8.4-10.6) mg/dL Urine Color Brown A (Yellow) Urine Appearance Cloudy A (Clear) Urine pH 5.5 (5.0-8.5) Ur Specific Grandin 1.025 (1.000-1.030) Urine Protein 3+ A (Negative) Urine Glucose (UA) Negative (Negative) Urine Ketones Negative (Negative) Urine Blood 3+ A (Negative) Urine Nitrite Negative (Negative) Urine Bilirubin 1+ A (Negative) Urine Urobilinogen 0.2 (0.2-1.0) Ur Leukocyte Esterase Trace A (Negative) Urine RBC 10-25 A (0-2) Urine WBC 10-25 A (0-5) Ur Squamous Epith Cells Few (None-Few) Urine Bacteria Few A (None) Fine Granular Casts Moderate A (None) Imaging Data CT scan - abdomen: Attestation: I have reviewed the pertinent imaging results. Radiologist's impression: Patient: [facility] Facility:?[facility] Patient ID:?[id number] Site Patient ID:?[id number]. Site :?[id number] Study:?CT-Abdomen/Pelvis WITHOUT-01/08/2025 6:28:27 PM Ordering Physician:?Rosa Maria Herrera Final Report: INDICATION: CR elevation, abdominal pain and dysuria. TECHNIQUE: CT abdomen and pelvis without contrast. COMPARISON: None. FINDINGS: Lower chest: Unremarkable. Liver: Diffuse fatty infiltration. Normal contour. No suspicious mass. Gallbladder and bile ducts: No stones or inflammation. No biliary dilatation. Pancreas: Fatty atrophy. No mass or inflammation. Spleen: Normal in size. No masses. Adrenal glands: Mild nodularity of the right adrenal gland. Unremarkable left adrenal gland. Kidneys: Left renal cyst. No hydronephrosis. 3 mm nonobstructing left nephrolith. Unremarkable ureters. GI tract: Unremarkable. Normal in caliber. No sign of mass or inflammation. The appendix is not visualized Vasculature: Abdominal aorta is normal in caliber. Lymph nodes: No lymphadenopathy. Peritoneum/Abdominal Wall: Unremarkable. No free air or significant free fluid. Pelvis: Prostatomegaly. Unremarkable bladder. Bones: Unremarkable for age. IMPRESSION: 1. No acute findings within the abdomen or pelvis. 2. 3 mm nonobstructing left nephrolith. 3. Prostatomegaly. 4. Hepatic steatosis. Please note that all CT scans at this facility use dose modulation, iterative reconstruction, and/or weight-based dosing when appropriate to reduce radiation dose to as low as reasonably achievable. Dictated by Real Cabrera MD @ 01/08/2025 7:05:38 PM (Electronic Signature) Discharge Plan Discharge Clinical Impression: Elevated serum creatinine Patient Disposition: Home, Self-Care Condition: Stable Instructions: Acute Kidney Injury (DC) Additional Instructions: Hold allopurinol, chlorthalidone, glimepiride, metformin, potassium. Cut losartan in half for 50 mg daily. Can stay on the tirzepitide. If your sugars are going up over the weekend off your other diabetic medicines, can go back on Actos until you can resume your other diabetic medicines. Metformin and 81 mg aspirin are fine to stay on. Need to drink plenty of fluids, can do combination of water, other fluids with some Gatorade or electrolyte replacement drink. Just drinking only plain water can drop the sodium. Need to follow up in clinic on Saturday and have your kidney functions rechecked and further directions for your medications. In the future, may need to hold metformin if getting procedures with IV contrast. Activity Level: Activity as Tolerated Discharge Diet: Diabetic Prescriptions: No Action atenolol 25 mg tablet 25 mg PO QDAY pioglitazone [Actos] 15 mg tablet 15 mg PO HS allopurinol 300 mg tablet 300 mg PO HS metformin 1,000 mg tablet 1,000 mg PO BIDWM glimepiride 4 mg tablet 8 mg PO DAILY losartan 100 mg tablet 100 mg PO DAILY chlorthalidone 50 mg tablet 50 mg PO DAILY potassium chloride [Klor-Con 10] 10 mEq tablet extended release 20 meq PO HS aspirin [Adult Aspirin Regimen] 81 mg tablet,delayed release (DR/EC) 81 mg PO DAILY fluticasone propionate [24 Hour Allergy Relief] 50 mcg/actuation spray,suspension 1 spray intranasal HS Rx Instructions: administer into each nostril Follow Up/Referrals: Santos Rowe MD [Primary Care Provider] - Stand Alone Forms: [employer] Info Instructions
--- OUTSIDE RECORDS SUMMARY | 2025-01-08 16:11 | XMS_ITS | Clinical Summary ---
Author Organization [email or web address] [facility] Address [address] [place] [id number] Care Team Providers Care Respiratory Care Instructor Name Role Phone Santos Rowe MD Unavailable [phone] Santos Rowe MD Primary Care Provider Allergies [...] days. 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 1 Each 12/01/19 25 Active allopurinoL [...] Department Care Team Description 01/08/2025 Nurse Triage [address] [address] Santos Rowe MD Urinary Problem 01/06/2025 Refill [facility] [address] [place] [address] Santos Rowe MD Refill Request (Allopurinol, Chlorthalidone, Metformin) 01/04/[address] [address] Santos Rowe MD DME Supply 11/30/[address] [address] Santos Rowe MD from Last 3 Months [...] on file Legal Sex Male 5:44 AM APRICOT PACKER Gender Identity Not on file Sexual Orientation Not on file Obstetrics History Last Filed Vital Signs Vital Sign Reading Time Taken Comments Blood Pressure 131/60 08/11/2024 8:10 AM APRICOT PACKER Pulse 74 08/11/2024 8:10 AM APRICOT PACKER Temperature 36.8 C (98.2 F) 01/21/2024 12:40 PM CDT Respiratory Rate 18 02/17/2024 9:39 AM CDT Oxygen Saturation 94% 08/11/2024 8:10 AM APRICOT PACKER Inhaled Oxygen Concentration - - Weight 142 kg (313 lb) 07/27/2024 10:50 AM APRICOT PACKER Height 185.4 cm (6' 1) 07/27/2024 10:50 AM APRICOT PACKER Body Mass Index 41.3 07/27/2024 10:50 AM APRICOT PACKER Plan of Treatment Upcoming Encounters Date Type Department Care Team (Late st Contact Info) Description 01/27/2025 10:40 AM CDT Office Visit [address] [place] [address] Santos Rowe MD [address] [place] [address] 05/03/2025 8:30 AM CDT Office Visit [facility] [address] [place] [address] Artemio Vivas MD [address] [place] [address] Health Maintenance Due Date Last Done Comments [...] history exists Medical Devices Implanted Type Area Life Agent Device Identifier Shelf Expiration Date Model / Serial / Lot Stent Uret [id number] Contour - [id number] Implanted:Qty: 1 on 10/11/2020 by Stanley Hernandez MD at [facility] Left: Ureter [facility] 06/10/2023 [id number] / / [id number] Stent Uret [id number] Percuflex Hydroplus - [id number] Implanted:Qty: 1 on 10/28/2020 by Stanley Hernandez MD at [facility] Left: [employer]reter [facility] 05/03/2023 [id number] / / [id number] Description:6Fx 26cm [place] scientific Percuflex Plus Dr Hernandez 10/28/20. 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, without long-term current use of insulin, unspecified retinopathy severity (HC) COLONOSCOPY SCREENING Routine 08/13/2023 12:34 PM APRICOT PACKER History of colon polyps ANTI HCV Routine 09/14/2020 2:48 PM APRICOT PACKER Controlled type 2 diabetes mellitus without complication, without long-term current use of insulin (HC) from Last 3 Months or Most Recently Relevant to Health Maintenance Results * (ABNORMAL) LIPID PANEL W REFLEX MEASURED LDL (07/27/2024 12:04 PM APRICOT PACKER) CHOLESTEROL, TOTAL 162 <200 mg/dL [facility] HDL CHOLESTEROL 29(L) > OR = 40 mg/dL [facility] TRIGLYCERIDES 113 <150 mg/dL [facility] LDL-CHOLESTEROL 111(H) mg/dL (calc) [facility] Comment: Reference range: <100 Desirable range <100 mg/dL for primary prevention; <70 mg/dL for patients with CHD or diabetic patients with > or = 2 CHD risk factors. LDL-C is now calculated using the Axel-Aristides calculation, which is a validated novel method providing better accuracy than the Friedewald equation in the estimation of LDL-C. Axel SS et al. TREE. 2013;310(19): 2105-7754 (http://education.[employer]/faq/QET047) CHOL/HDLC RATIO 5.6(H) <5.0 (calc) [facility] NON HDL CHOLESTEROL 133(H) <130 mg/dL (calc) [facility] Comment: For patients with diabetes plus 1 major ASCVD risk factor, treating to a non-HDL-C goal of <100 mg/dL (LDL-C of <70 mg/dL) is considered a therapeutic option. Blood BLOOD SPECIMEN / Unknown 07/27/2024 12:04 PM APRICOT PACKER 07/27/2024 12:06 PM APRICOT PACKER Narrative [facility] - 07/28/2024 4:58 AM APRICOT PACKER FASTING:YES FASTING: YES us Santos Rowe MD CHEMISTRY Final R esult [facility] [address] [place] [address], [facility] [address] [place] [address] * COLONOSCOPY (08/13/2023 11:42 AM APRICOT PACKER) 08/13/2023 11:4 2 AM APRICOT PACKER Narrative Transcriptions Axel Tipton MD - 08/13/2023 [...] adequate candidate for conscious sedation. The endoscope [id number] was passed through the anus andadvanced to [...] 11:42 AM Procedure Code(s): --- Professional --- 66667, Colonoscopy, flexible; with removalof tumor(s), polyp(s), or other lesion(s) bysnare technique Diagnosis Code(s): --- Professional --- D12.2, Benign neoplasm of ascending colon D12.8, Benign neoplasm of rectum Z86.010, Personal history of colonicpolyps CPT copyright 2021 [employer]. All rights reserved. The codes documented in this report are preliminary and upon public health administrator reviewmay be revised to meet current compliance requirements. Scope In: 1:58:15 PM Scope Withdrawal Time 0 hours 18 minutes 35 seconds Scope Out: 2:22:12 PM us Axel Tipton MD PROCEDURE ORD Final Res ult * ANTI HCV (09/14/2020 2:48 PM APRICOT PACKER) HEPATITIS C ANTIBODY Non-React dimitry Non-React dimitry 09/14/2020 7:35 PM APRICOT PACKER [facility] Comment:Antibodies to HCV no t detected; does not exclude the possibility of exposure to HCV. Blood BLOOD SPECIMEN / Unknown Venipuncture / Unknown 09/14/2020 2:48 PM APRICOT PACKER 09/14/2020 3:38 PM APRICOT PACKER us Pedrito Hale MD SEND OUTS Final Re sult [facility] [address] [place] [address], [place] from Last 3 Months or Most Recently Relevant to Health Maintenance Insurance MEDICARE PART B HB ONLY MEDICARE PART A HB ONLY [employer] [place] [employer] PB ONLY [employer] [place] [employer] HB ONLY * Guarantor: TRUDY YOUNG Account Type Relation to Patient Date of Phone Billing Address [facility] Employer [id number] [place] [id number] Advance Directives * Full Code (Latest Code [...] Code Status Discussion: Not Discussed Care Teams Respiratory Care Instructor Relationship Specialty Start Date End Date Santos Rowe MD [address] [facility] [place] [address] PCP - General Family Practice 12/19/23 Santos Rowe MD [address] [facility] [place] [address] Family Practice 12/19/23
[2025-01-08 16:40] LABS: Appearance Urine Cloudy (Clear); Bilirubin Urine 1+ (Negative); Blood Urine 3+ (Negative); Color Urine Brown (Yellow); Glucose Urine Negative (Negative); Ketones Urine Negative (Negative); Leukocyte Esterase Urine Trace (Negative); Nitrite Urine Negative (Negative); Protein Urine 3+ (Negative); Specific Gravity Urine 1.025 (1.000-1.030); Urobilinogen Urine 0.2 (0.2-1.0); pH Urine 5.5 (5.0-8.5)
[2025-01-08 16:44] LABS: Basophils Absolute Auto 0.02 K/uL (0.00-0.30); Basophils Percent Auto 0.2 % (0.0-3.0); Eosinophils Percent Auto 0.9 % (0.0-7.0); Hematocrit 35.9 % (37.0-53.0); Hemoglobin* 11.8 gm/dL (13.5-17.5); Immature Granulocytes Abs Auto 0.13 K/uL (0.00-0.30); Immature Granulocytes Pct Auto 1.2 %; Lymphocytes Percent Auto 13.1 % (20-44); Mean Corpuscular HGB Conc 33 gm/dL (32-36); Mean Corpuscular Hemoglobin 32 pg (26-34); Mean Corpuscular Volume 98 fL (80-100); Monocytes Percent Auto 11.5 % (0.0-11.0); Neutrophils Percent Auto 73.1 % (42.0-72.0); Platelet Count* 215 K/uL (140-440); RDW Coefficient of Variation % 13.7 % (11.5-15.5); Red Blood Count 3.66 m/uL (4.30-5.90); White Blood Count* 10.89 K/uL (4.50-11.00)
[2025-01-08 16:45] LABS: Slide Review Reflex No
[2025-01-08 16:48] LABS: Bacteria Urine Few; Fine Granular Casts Urine Moderate; Squamous Epithelial Cell Urine Few (None-Few)
[2025-01-08 16:49] LABS: Chloride* 107 mmol/L (96-114); INR 1.03 (0.91-1.10); Partial Thromboplastin Time* 32 Seconds (23-33); Potassium* 4.6 mmol/L (3.6-5.1); Prothrombin Time 14.3 Seconds; Sodium* 141 mmol/L (135-149)
[2025-01-08 16:52] LABS: Blood Urea Nitrogen* 74 mg/dL (7-30); Creatinine* 2.5 mg/dL (0.5-1.5); Est. Creatinine Clearance* 31.52; Estimated Glomerular Filt Rate 27 ml/min
[2025-01-08 16:53] LABS: Anion Gap 15 mEq/L (7-15); Calcium* 9.4 mg/dL (8.4-10.6); Carbon Dioxide* 19 mmol/L (20-32); Glucose* 157 mg/dL (60-115)
[2025-01-08] MEDS: cefTRIAXone 2 GM in 0.9 % SODIUM CHLORIDE Mini-bag 100 ML IVPB (17:26)
[2025-01-08] MEDS: 0.9 % SODIUM CHLORIDE 500 ML 500 ML IV (17:26)
[2025-01-08 17:27] VITALS: BP 130/73; PULSE 68; RESP 16; TEMP 36.9; O2SAT 98
--- NOTE | 2025-01-08 17:35 | CRLHL7_ITS ---
For Patients: As a result of the Century Cures Act, medical imaging exams and procedure reports are released immediately into your electronic medical record. You may view this report before your referring provider. If you have questions, please contact your health care provider. INDICATION: CR elevation, abdominal pain and dysuria. TECHNIQUE: CT abdomen and pelvis without contrast. COMPARISON: None. FINDINGS: Lower chest: Unremarkable. Liver: Diffuse fatty infiltration. Normal contour. No suspicious mass. Gallbladder and bile ducts: No stones or inflammation. No biliary dilatation. Pancreas: Fatty atrophy. No mass or inflammation. Spleen: Normal in size. No masses. Adrenal glands: Mild nodularity of the right adrenal gland. Unremarkable left adrenal gland. Kidneys: Left renal cyst. No hydronephrosis. 3 mm nonobstructing left nephrolith. Unremarkable ureters. GI tract: Unremarkable. Normal in caliber. No sign of mass or inflammation. The appendix is not visualized Vasculature: Abdominal aorta is normal in caliber. Lymph nodes: No lymphadenopathy. Peritoneum/Abdominal Wall: Unremarkable. No free air or significant free fluid. Pelvis: Prostatomegaly. Unremarkable bladder. Bones: Unremarkable for age. IMPRESSION: 1. No acute findings within the abdomen or pelvis. 2. 3 mm nonobstructing left nephrolith. 3. Prostatomegaly. 4. Hepatic steatosis. Please note that all CT scans at this facility use dose modulation, iterative reconstruction, and/or weight-based dosing when appropriate to reduce radiation dose to as low as reasonably achievable. Dictated by Real Cabrera MD @ 01/08/2025 7:05:38 PM (Electronically Signed)
[2025-01-08] MEDS: 0.9 % SODIUM CHLORIDE 1000 ml 1,000 ML 500 ML IV (19:42)
[2025-01-08 19:54] VITALS: BP 130/68; PULSE 78; RESP 16; TEMP 36.8
--- NOTE | 2025-01-11 10:36 | ED_ITS ---
HPI - General Adult General Chief complaint: Urogenital Problems, Male Stated complaint: Cant Urinate, blood in urine Time Seen by Provider: 01/08/25 15:52 Source: patient, RN notes reviewed and old records reviewed Mode of arrival: ambulatory Limitations: no limitations History of Present Illness HPI narrative: This is an addendum to Dr. Kearney is note from the other day. Patient's urine culture came back weakly positive for E coli with [phone] colony-forming units per meal. E coli is resistant to ampicillin and penicillins as well as 1st generation cephalosporins. Also resistant to Bactrim. Sensitive to 3rd generation cephalosporins, ciprofloxacin and other fluoroquinolones. Also sensitive to nitrofurantoin. I contacted the patient's cell phone. Informed of the urine culture results. I recommend treatment with antibiotics. Would select Macrobid 100 b.i.d. for 7 days. He actually says that he has an appointment with his doctor, Dr. Rowe in about 55 minutes. He prefers to talk to his regular doctor about the urine culture results and will have his doctor prescribe the antibiotics. Related Data Home Medications ?Medication ?Instructions ?Recorded ?Confirmed atenolol 25 mg tablet 25 mg PO QDAY 07/06/22 01/08/25 pioglitazone 15 mg tablet (Actos) 15 mg PO HS 07/06/22 02/07/23 allopurinol 300 mg tablet 300 mg PO HS 07/31/22 01/08/25 aspirin 81 mg tablet,delayed 81 mg PO DAILY 02/07/23 01/08/25 release (Adult Aspirin Regimen) chlorthalidone 50 mg tablet 50 mg PO DAILY 02/07/23 01/08/25 fluticasone propionate 50 1 spray intranasal HS 02/07/23 01/08/25 mcg/actuation nasal spray,suspension (24 Hour Allergy Relief) glimepiride 4 mg tablet 8 mg PO DAILY 02/07/23 01/08/25 losartan 100 mg tablet 100 mg PO DAILY 02/07/23 01/08/25 metformin 1,000 mg tablet 1,000 mg PO BIDWM 02/07/23 01/08/25 potassium chloride 10 mEq 20 meq PO HS 02/07/23 01/08/25 tablet,extended release (Klor-Con) Allergies Allergy/AdvReac Type Severity Reaction Status Date / Time No Known Drug Allergies Allergy Verified 01/08/25 15:34 PFSH PFSH Medical History Right Achilles tendinitis ?M76.61 - Achilles tendinitis, right leg (ICD-10) Calcaneal spur of right foot ?M77.31 - Calcaneal spur, right foot (ICD-10) Lateral epicondylitis, left elbow ?M77.12 - Lateral epicondylitis, left elbow (ICD-10) Acute gout of left elbow ?M10.9 - Gout, unspecified (ICD-10) Hypertension ?I10 - Essential (primary) hypertension (ICD-10) Type 2 diabetes mellitus ?E11.9 - Type 2 diabetes mellitus without complications (ICD-10) Surgical History H/O shoulder surgery ?Z98.890 - Other specified postprocedural states (ICD-10) History of prostate surgery ?Z98.890 - Other specified postprocedural states (ICD-10) Social History Highest level of school completed/degree received: high school graduate Smoking Status: Former smoker Do you use any of these nicotine containing products: None Second hand tobacco smoke exposure: No How often do you have a drink containing alcohol: never AUDIT-C Alcohol total score: 0 Non-prescribed substance use: denies use Caffeine: Yes (1 pop) service: No Course Vital Signs Vital signs: Initial Vital Signs Temperature 97.3 F L 01/08/25 15:37 Temperature Source Temporal Artery Scan 01/08/25 15:37 Pulse Rate 58 L 01/08/25 15:37 Respiratory Rate 18 01/08/25 15:37 Blood Pressure 133/71 01/08/25 15:37 Blood Pressure Mean 91 01/08/25 15:37 Pulse Oximetry 97 01/08/25 15:37 Oxygen Delivery Method Room Air 01/08/25 15:37 Vital Signs Temperature 97.3 F L 01/08/25 15:37 Pulse Rate 58 L 01/08/25 15:37 Respiratory Rate 18 01/08/25 15:37 Blood Pressure 133/71 01/08/25 15:37 Pulse Oximetry 97 01/08/25 15:37 Oxygen Delivery Method Room Air 01/08/25 15:37 Temperature 98.3 F 01/08/25 19:54 Pulse Rate 78 01/08/25 19:54 Respiratory Rate 16 01/08/25 19:54 Blood Pressure 130/68 01/08/25 19:54 Pulse Oximetry 98 01/08/25 17:27 Oxygen Delivery Method Room Air 01/08/25 17:27 Medications Administered Medications: Discontinued Medications Generic Name Dose Route Start Last Admin Trade Name Freq PRN Reason Stop Dose Admin Sodium Chloride 500 mls @ 500 mls/hr 01/08/25 16:58 01/08/25 18:13 0.9 % Sodium Chloride 500 Ml IV 01/08/25 17:57 Infused .Q1H ONE Infusion Ceftriaxone Sodium 2 gm/ 100 mls @ 200 mls/hr 01/08/25 16:58 01/08/25 18:13 Sodium Chloride IVPB 01/08/25 16:59 Infused ONCE ONE Infusion Sodium Chloride 1,000 mls @ 500 mls/hr 01/08/25 19:26 01/08/25 19:42 0.9 % Sodium Chloride 1000 Ml IV 01/08/25 21:25 500 mls/hr .Q2H JOSE Administration Medical Decision Making Lab Data Labs: Lab Results 01/08/25 01/08/25 Range/Units 16:29 16:32 WBC 10.89 (4.50-11.00) K/uL RBC 3.66 L (4.30-5.90) m/uL Hgb 11.8 L (13.5-17.5) gm/dL Hct 35.9 L (37.0-53.0) % MCV 98 (80-100) fL MCH 32 (26-34) pg MCHC 33 (32-36) gm/dL RDW Coeff of Jane 13.7 (11.5-15.5) % Plt Count 215 (140-440) K/uL Neut % (Auto) 73.1 H (42.0-72.0) % Lymph % (Auto) 13.1 L (20-44) % [place] % (Auto) 11.5 H (0.0-11.0) % Eos % (Auto) 0.9 (0.0-7.0) % Baso % (Auto) 0.2 (0.0-3.0) % Neut # (Auto) 8.00 H (1.7-7.0) K/uL Lymph # (Auto) 1.40 (0.90-2.90) K/uL [place] # (Auto) 1.30 H (0.00-0.90) K/UL Eos # (Auto) 0.10 (0.00-0.50) K/uL Baso # (Auto) 0.02 (0.00-0.30) K/uL Abs Immat Gran (auto) 0.13 (0.00-0.30) K/uL Imm/Tot Granulo (auto) 1.2 % INR 1.03 (0.91-1.10) APTT 32 (23-33) Seconds Sodium 141 (135-149) mmol/L Potassium 4.6 (3.6-5.1) mmol/L Chloride 107 (96-114) mmol/L Carbon Dioxide 19 L (20-32) mmol/L Anion Gap 15 (7-15) mEq/L BUN 74 H (7-30) mg/dL Creatinine 2.5 H (0.5-1.5) mg/dL Estimated Creat Clear 31.52 Estimated GFR 27 ml/min Glucose 157 H (60-115) mg/dL Calcium 9.4 (8.4-10.6) mg/dL Urine Color Brown A (Yellow) Urine Appearance Cloudy A (Clear) Urine pH 5.5 (5.0-8.5) Ur Specific [place] 1.025 (1.000-1.030) Urine Protein 3+ A (Negative) Urine Glucose (UA) Negative (Negative) Urine Ketones Negative (Negative) Urine Blood 3+ A (Negative) Urine Nitrite Negative (Negative) Urine Bilirubin 1+ A (Negative) Urine Urobilinogen 0.2 (0.2-1.0) Ur Leukocyte Esterase Trace A (Negative) Urine RBC 10-25 A (0-2) Urine WBC 10-25 A (0-5) Ur Squamous Epith Cells Few (None-Few) Urine Bacteria Few A (None) Fine Granular Casts Moderate A (None) Discharge Plan Discharge Clinical Impression: Elevated serum creatinine Patient Disposition: Home, Self-Care Condition: Stable Instructions: Acute Kidney Injury (DC) Additional Instructions: Hold allopurinol, chlorthalidone, glimepiride, metformin, potassium. Cut losartan in half for 50 mg daily. Can stay on the tirzepitide. If your sugars are going up over the weekend off your other diabetic medicines, can go back on Actos until you can resume your other diabetic medicines. Metformin and 81 mg aspirin are fine to stay on. Need to drink plenty of fluids, can do combination of water, other fluids with some Gatorade or electrolyte replacement drink. Just drinking only plain water can drop the sodium. Need to follow up in clinic on Saturday and have your kidney functions rechecked and further directions for your medications. In the future, may need to hold metformin if getting procedures with IV contrast. Activity Level: Activity as Tolerated Discharge Diet: Diabetic Prescriptions: No Action atenolol 25 mg tablet 25 mg PO QDAY pioglitazone [Actos] 15 mg tablet 15 mg PO HS allopurinol 300 mg tablet 300 mg PO HS metformin 1,000 mg tablet 1,000 mg PO BIDWM glimepiride 4 mg tablet 8 mg PO DAILY losartan 100 mg tablet 100 mg PO DAILY chlorthalidone 50 mg tablet 50 mg PO DAILY potassium chloride [Klor-Con 10] 10 mEq tablet extended release 20 meq PO HS aspirin [Adult Aspirin Regimen] 81 mg tablet,delayed release (DR/EC) 81 mg PO DAILY fluticasone propionate [24 Hour Allergy Relief] 50 mcg/actuation spray,suspension 1 spray intranasal HS Rx Instructions: administer into each nostril Follow Up/Referrals: Santos Rowe MD [Primary Care Provider] - Stand Alone Forms: [facility] Info Instructions
== END 2025-01-08 20:18 | disposition home or self-care (01) ==
PROVIDERS: Emergency Provider Family Medicine; PCP Family Medicine
DX: R94.4 Abnormal results of kidney function studies (principal); N48.89 Other specified disorders of penis; R31.9 Hematuria, unspecified; E11.9 Type 2 diabetes mellitus without complications; Z79.84 Long term (current) use of oral hypoglycemic drugs; Z79.899 Other long term (current) drug therapy
CPT/HCPCS: 36415; 74176; 80048; 81001; 85025; 85610; 85730; 87086; 99281; 99284; J0696; J7030

== ENCOUNTER 2025-02-23 14:37 | Outpatient (CLI) | payer MEDICARE, BC, SELFPAY | END 2025-02-23 14:38 | disposition home or self-care (01) | LOC: INJ CL 14:39 | PROVIDERS: PCP Family Medicine; Visit Provider Family Medicine | DX: M54.16 Radiculopathy, lumbar region (principal); M51.369 Other intervertebral disc degeneration, lumbar region without mention of lumbar back pain or lower extremity pain | CPT/HCPCS: 62323; J0702; Q9966 ==

== ENCOUNTER 2025-06-01 09:24 | Outpatient (CLI) | payer MEDICARE, BC, SELFPAY | END 2025-06-01 09:25 | disposition home or self-care (01) | LOC: INJ CL 09:25 | PROVIDERS: PCP Family Medicine; Visit Provider Family Medicine | DX: M54.16 Radiculopathy, lumbar region (principal); M51.369 Other intervertebral disc degeneration, lumbar region without mention of lumbar back pain or lower extremity pain | CPT/HCPCS: 62323; J0702; Q9966 ==